=== PATIENT | male | born 1980 | race African-American/Black ===

== ENCOUNTER 2016-08-05 08:55 | Inpatient (IN) | payer MEDICAID, OTHER ==
[~2016-08-05] VITALS: Ht 177.8 cm; Wt 64.9 kg
[~2016-08-05 08:55] MED LIST: OLAN10TA3 PO; OLAN10TA6 PO; VITAD1000 PO
[2016-08-05 10:18] LABS: BASOPHILS # (AUTO) 0.06 K/uL (0.00-0.20); EOSINOPHILS # (AUTO) 0.16 K/uL (0.00-0.70); EOSINOPHILS % (AUTO) 2.79 % (1.0-6.0); HEMATOCRIT 51.1 % (41-53); HEMOGLOBIN 16.6 g/dL (13.5-17.5); LYMPHOCYTES # (AUTO) 2.2 K/uL (1.0-4.8); LYMPHOCYTES % (AUTO) 37.3 % (22.0-44.0); MEAN CORPUSCULAR HEMOGLOBIN 27.5 pg (26.0-34.0); MEAN CORPUSCULAR HGB CONC 32.5 G/dL (31.0-37.0); MEAN CORPUSCULAR VOLUME 85 fL (80-100); MONOCYTES # (AUTO) 0.6 K/uL (0.1-1.0); MONOCYTES % (AUTO) 9.9 % (2.0-9.0); NEUTROPHILS # (AUTO) 2.9 K/uL (1.8-7.7); PLATELET COUNT (AUTO) 291 K/uL (150-450); RED BLOOD CELL COUNT(AUTO) 6.03 MIL/uL (4.50-5.90); RED CELL DISTRIBUTION WIDTH 13.4 % (11.5-14.5); WHITE BLOOD COUNT (AUTO) 5.9 K/uL (4.5-11.0)
[2016-08-05 10:27] LABS: ANION GAP 5 mmol/L (8-16); CALCIUM, TOTAL 9.8 mg/dL (8.8-10.5); CARBON DIOXIDE 34 mmol/L (22-29); CHLORIDE 103 mmol/L (98-107); CREATININE 1.21 mg/dL (0.60-1.30); GLOMERULAR FILTR. RATE CALC > 60 mL/min (>60); POTASSIUM 4.5 mmol/L (3.5-5.1); SODIUM SERUM 142 mmol/L (136-145); UREA NITROGEN, BLOOD 6 mg/dL (7-18)
[2016-08-05] MEDS ORDERED: LORazepam 2 MG TABLET PO ONE (10:30)
[2016-08-05] MEDS ORDERED: HALOPERIDOL 5 MG TABLET PO ONE (10:30)
[2016-08-05 10:33] LABS: ALANINE AMINOTRANSFERASE 26 U/L (12-78); ALBUMIN 4.4 g/dL (3.4-5.0); ASPARTATE AMINOTRANSFERASE 20 U/L (15-37); BILIRUBIN,TOTAL 0.9 mg/dL (0.1-1.0); TOTAL PROTEIN, SERUM 8.2 g/dL (6.4-8.2)
[2016-08-05] MEDS ORDERED: ZOLPIDEM TARTRATE 10 MG TABLET PO PRN (10:45)
[2016-08-05 18:23] VITALS: BP 115/62
[2016-08-05] MEDS ORDERED: INFLUENZA VIRUS VACCINE QVS 2016-17 (3YR+)/PF 60 MCG/0.5 ML SYRINGE IM ONE (19:45)
[2016-08-06 07:11] VITALS: BP 122/78
[2016-08-06 08:21] VITALS: BP 126/62
[2016-08-06] MEDS: CHOLECALCIFEROL (VIT D3) 1,000 UNITS TABLET PO SCH (10:23)
[2016-08-06] MEDS ORDERED: IBUPROFEN 400 MG TABLET PO PRN (10:30)
[2016-08-06] MEDS ORDERED: ACETAMINOPHEN 325 MG TABLET PO PRN (10:30)
[2016-08-06 16:00] VITALS: BP 118/72
[2016-08-06] MEDS: HALOPERIDOL 5 MG TABLET PO PRN (16:18)
[2016-08-06] MEDS: LORazepam 2 MG TABLET PO PRN (16:18)
[2016-08-06] MEDS: OLANZapine 10 MG TABLET PO SCH (20:41)
[2016-08-07 08:17] VITALS: BP 108/66
[2016-08-07 08:52] LABS: HEMOGLOBIN A1C 5.8 % (4.5-6.2)
[2016-08-07] MEDS: CHOLECALCIFEROL (VIT D3) 1,000 UNITS TABLET PO SCH (09:18)
[2016-08-07 09:25] LABS: CHOL/HDL RATIO 2.2 (4.2-7.3); THYROID STIMULATING HORMONE 0.6 uIU/mL (0.36-3.74)
[2016-08-07 16:28] VITALS: BP 107/61
[2016-08-07] MEDS: OLANZapine 10 MG TABLET PO SCH (20:56)
[2016-08-08 06:49] VITALS: BP 115/75
[2016-08-08 08:19] VITALS: BP 113/60
[2016-08-08] MEDS: CHOLECALCIFEROL (VIT D3) 1,000 UNITS TABLET PO SCH (09:08)
[2016-08-08 16:06] VITALS: BP 121/68
[2016-08-08] MEDS: OLANZapine 10 MG TABLET PO SCH (20:32)
[2016-08-09 06:33] VITALS: BP 108/60
[2016-08-09] MEDS: CHOLECALCIFEROL (VIT D3) 1,000 UNITS TABLET PO SCH (08:41)
[2016-08-09 08:46] VITALS: BP 110/56
[2016-08-09 16:17] VITALS: BP 113/71
[2016-08-09] MEDS: OLANZapine 10 MG TABLET PO SCH (20:40)
[2016-08-10 06:57] VITALS: BP 110/65
[2016-08-10 08:36] VITALS: BP 111/65
[2016-08-10] MEDS: CHOLECALCIFEROL (VIT D3) 1,000 UNITS TABLET PO SCH (11:16)
[2016-08-10] MEDS: LORazepam 2 MG TABLET PO PRN (16:02)
[2016-08-10 16:05] VITALS: BP 116/68
[2016-08-10] MEDS: OLANZapine 10 MG TABLET PO SCH (20:24)
[2016-08-11 07:02] VITALS: BP 110/70
[2016-08-11] MEDS: CHOLECALCIFEROL (VIT D3) 1,000 UNITS TABLET PO SCH (08:27)
[2016-08-11 08:48] VITALS: BP 106/62
[2016-08-11 16:10] VITALS: BP 119/66
[2016-08-11] MEDS: LORazepam 2 MG TABLET PO PRN (17:05)
[2016-08-11] MEDS: HALOPERIDOL 5 MG TABLET PO PRN (17:05)
[2016-08-11] MEDS: OLANZapine 10 MG TABLET PO SCH (21:05)
[2016-08-12 07:02] VITALS: BP 112/64
[2016-08-12 08:21] VITALS: BP 108/69
[2016-08-12] MEDS: LORazepam 2 MG TABLET PO PRN ×2 (09:25→17:00)
[2016-08-12] MEDS: CHOLECALCIFEROL (VIT D3) 1,000 UNITS TABLET PO SCH (09:25)
[2016-08-12 16:00] VITALS: BP 111/73
[2016-08-12] MEDS: OLANZapine 10 MG TABLET PO SCH (20:33)
[2016-08-13 06:46] VITALS: BP 116/83
[2016-08-13 08:17] VITALS: BP 108/70
[2016-08-13] MEDS: CHOLECALCIFEROL (VIT D3) 1,000 UNITS TABLET PO SCH (09:06)
[2016-08-13] MEDS: LORazepam 2 MG TABLET PO PRN ×2 (09:06→16:16)
[2016-08-13 16:00] VITALS: BP 115/71
[2016-08-13] MEDS: OLANZapine 10 MG TABLET PO SCH (20:34)
[2016-08-14 06:42] VITALS: BP 113/73
[2016-08-14 08:01] VITALS: BP 112/60
[2016-08-14] MEDS: LORazepam 2 MG TABLET PO PRN (08:17)
[2016-08-14] MEDS: CHOLECALCIFEROL (VIT D3) 1,000 UNITS TABLET PO SCH (08:17)
[2016-08-14] MEDS ORDERED: VITAD1000 PO (10:17)
[2016-08-14] MEDS ORDERED: OLAN10TA3 PO (10:17)
== END 2016-08-14 13:20 | disposition home or self-care (01) | DRG 750 ==
LOC: EMS 08:56 → B2S 17:15 → UNDOADMIN 17:19 → B3A 18:35 → B2S 18:35
PROVIDERS: ADMIT Psychiatry & Neurology Psychiatry; ATTEND Psychiatry & Neurology Psychiatry
DX: F20.0 Paranoid schizophrenia (principal); R45.851 Suicidal ideations; E55.9 Vitamin D deficiency, unspecified; R45.850 Homicidal ideations; F15.10 Other stimulant abuse, uncomplicated; F17.210 Nicotine dependence, cigarettes, uncomplicated; F19.10 Other psychoactive substance abuse, uncomplicated; F32.9 Major depressive disorder, single episode, unspecified; Z79.899 Other long term (current) drug therapy; Z28.21 Immunization not carried out because of patient refusal
CPT/HCPCS: 83036; 84443; 99285; G0480

== ENCOUNTER 2016-08-31 16:37 | Inpatient (IN) | payer MEDICAID, OTHER ==
[~2016-08-31] VITALS: Ht 177.8 cm; Wt 65.3 kg
[~2016-08-31 16:37] MED LIST changes: -OLAN10TA6 PO
[2016-08-31] MEDS ORDERED: HALOPERIDOL LACTATE 5 MG/ML VIAL IM ONE (16:45)
[2016-08-31] MEDS ORDERED: LORazepam 2 MG/ML VIAL IM ONE (16:45)
[2016-08-31] MEDS ORDERED: DiphenhydrAMINE HCL 50 MG/ML VIAL IM ONE (16:45)
[2016-08-31 17:13] LABS: BASOPHILS % (AUTO) 0.8 % (0.0-2.0); EOSINOPHILS % (AUTO) 5.9 % (1.0-6.0); HEMATOCRIT 50.2 % (41-53); LYMPHOCYTES # (AUTO) 2.7 K/uL (1.0-4.8); LYMPHOCYTES % (AUTO) 37.5 % (22.0-44.0); MEAN CORPUSCULAR HEMOGLOBIN 27.5 pg (26.0-34.0); MEAN CORPUSCULAR HGB CONC 31.9 G/dL (31.0-37.0); MEAN CORPUSCULAR VOLUME 86 fL (80-100); MONOCYTES # (AUTO) 0.4 K/uL (0.1-1.0); NEUTROPHILS # (AUTO) 3.6 K/uL (1.8-7.7); NEUTROPHILS % (AUTO) 49.8 % (40.0-70.0); PLATELET COUNT (AUTO) 293 K/uL (150-450); RED BLOOD CELL COUNT(AUTO) 5.81 MIL/uL (4.50-5.90); RED CELL DISTRIBUTION WIDTH 13.6 % (11.5-14.5); WHITE BLOOD COUNT (AUTO) 7.2 K/uL (4.5-11.0)
[2016-08-31] MEDS ORDERED: HydrOXYzine PAMOATE 50 MG CAPSULE PO PRN (17:15)
[2016-08-31] MEDS ORDERED: ACETAMINOPHEN 325 MG TABLET PO PRN (17:15)
[2016-08-31] MEDS ORDERED: LOPERAMIDE HCL 2 MG CAPSULE PO PRN (17:15)
[2016-08-31] MEDS ORDERED: LORazepam 2 MG TABLET PO PRN (17:15)
[2016-08-31] MEDS ORDERED: ZOLPIDEM TARTRATE 10 MG TABLET PO PRN (17:15)
[2016-08-31] MEDS ORDERED: MAGNESIUM HYDROXIDE SUSPENSION 30 ML UDCUP PO PRN (17:15)
[2016-08-31] MEDS ORDERED: MAG HYDROX/AL HYDROX/SIMETH ES 30 ML SUSPENSION UDCUP PO PRN (17:15)
[2016-08-31] MEDS ORDERED: PROMETHAZINE HCL 25 MG TABLET PO PRN (17:15)
[2016-08-31] MEDS ORDERED: OLANZapine 5 MG RAPDIS TABLET PO PRN (17:15)
[2016-08-31] MEDS ORDERED: TUBERCULIN, PURIFIED PROTEIN DERIVATIVE 5 TU/0.1 ML SYG ID ONE (17:15)
[2016-08-31] MEDS ORDERED: GuaiFENesin/D-METHORPHAN [SUGAR-FREE] 200-20MG/10 ML SYRUP UDCUP PO PRN (17:15)
[2016-08-31 17:20] LABS: ANION GAP 7 mmol/L (8-16); CALCIUM, TOTAL 9.2 mg/dL (8.8-10.5); CARBON DIOXIDE 33 mmol/L (22-29); CHLORIDE 106 mmol/L (98-107); CREATININE 1.26 mg/dL (0.60-1.30); GLOMERULAR FILTR. RATE CALC > 60 mL/min (>60); SODIUM SERUM 146 mmol/L (136-145); UREA NITROGEN, BLOOD 17 mg/dL (7-18)
[2016-08-31 17:27] LABS: ALANINE AMINOTRANSFERASE 26 U/L (12-78); ALBUMIN 4.2 g/dL (3.4-5.0); ASPARTATE AMINOTRANSFERASE 17 U/L (15-37); BILIRUBIN,TOTAL 0.4 mg/dL (0.1-1.0); TOTAL PROTEIN, SERUM 7.4 g/dL (6.4-8.2)
[2016-08-31] MEDS: THIAMINE HCL 100 MG TABLET PO SCH (18:05)
[2016-08-31] MEDS: OLANZapine 5 MG RAPDIS TABLET PO SCH (21:00)
[2016-08-31 21:21] VITALS: BP 107/66
[2016-09-01 06:18] VITALS: BP 104/62
[2016-09-01 08:24] VITALS: BP 107/71
[2016-09-01] MEDS: THIAMINE HCL 100 MG TABLET PO SCH ×2 (09:04→16:44)
[2016-09-01] MEDS: MULTIVITAMINS WITH MINERALS, THERAPEUTIC TABLET PO SCH (09:04)
[2016-09-01] MEDS: FOLIC ACID 1 MG TABLET PO SCH (09:04)
[2016-09-01] MEDS ORDERED: ACETAMINOPHEN 325 MG TABLET PO PRN (16:00)
[2016-09-01] MEDS ORDERED: IBUPROFEN 400 MG TABLET PO PRN (16:00)
[2016-09-01 16:56] VITALS: BP 136/88
[2016-09-01] MEDS: OLANZapine 5 MG RAPDIS TABLET PO SCH (20:52)
[2016-09-02 01:02] VITALS: BP 100/56
[2016-09-02 08:52] VITALS: BP 110/63
[2016-09-02] MEDS: FOLIC ACID 1 MG TABLET PO SCH (09:55)
[2016-09-02] MEDS: CHOLECALCIFEROL (VIT D3) 1,000 UNITS TABLET PO SCH (09:55)
[2016-09-02] MEDS: MULTIVITAMINS WITH MINERALS, THERAPEUTIC TABLET PO SCH (09:55)
[2016-09-02] MEDS: THIAMINE HCL 100 MG TABLET PO SCH ×2 (09:55→16:25)
[2016-09-02 16:33] VITALS: BP 114/64
[2016-09-02] MEDS: OLANZapine 5 MG RAPDIS TABLET PO SCH (20:44)
[2016-09-03 00:37] VITALS: BP 105/71
[2016-09-03 08:12] VITALS: BP 113/52
[2016-09-03 08:44] LABS: BASOPHILS % (AUTO) 1.1 % (0.0-2.0); EOSINOPHILS % (AUTO) 9.1 % (1.0-6.0); HEMATOCRIT 51.4 % (41-53); HEMOGLOBIN 16.4 g/dL (13.5-17.5); LYMPHOCYTES % (AUTO) 47.3 % (22.0-44.0); MEAN CORPUSCULAR HEMOGLOBIN 27.8 pg (26.0-34.0); MEAN CORPUSCULAR VOLUME 87 fL (80-100); MONOCYTES # (AUTO) 0.4 K/uL (0.1-1.0); MONOCYTES % (AUTO) 5.7 % (2.0-9.0); NEUTROPHILS # (AUTO) 2.3 K/uL (1.8-7.7); NEUTROPHILS % (AUTO) 36.8 % (40.0-70.0); PLATELET COUNT (AUTO) 256 K/uL (150-450); RED BLOOD CELL COUNT(AUTO) 5.91 MIL/uL (4.50-5.90); RED CELL DISTRIBUTION WIDTH 13.6 % (11.5-14.5); WHITE BLOOD COUNT (AUTO) 6.3 K/uL (4.5-11.0)
[2016-09-03] MEDS: CHOLECALCIFEROL (VIT D3) 1,000 UNITS TABLET PO SCH (09:11)
[2016-09-03] MEDS: THIAMINE HCL 100 MG TABLET PO SCH ×2 (09:11→16:07)
[2016-09-03] MEDS: FOLIC ACID 1 MG TABLET PO SCH (09:11)
[2016-09-03] MEDS: MULTIVITAMINS WITH MINERALS, THERAPEUTIC TABLET PO SCH (09:11)
[2016-09-03 09:44] LABS: HEMOGLOBIN A1C 5.6 % (4.5-6.2)
[2016-09-03 10:47] LABS: ALANINE AMINOTRANSFERASE 24 U/L (12-78); ALBUMIN 3.7 g/dL (3.4-5.0); ANION GAP 8 mmol/L (8-16); ASPARTATE AMINOTRANSFERASE 27 U/L (15-37); BILIRUBIN,TOTAL 0.5 mg/dL (0.1-1.0); CALCIUM, TOTAL 8.9 mg/dL (8.8-10.5); CARBON DIOXIDE 28 mmol/L (22-29); CHLORIDE 105 mmol/L (98-107); CHOL/HDL RATIO 2.8 (4.2-7.3); GLOMERULAR FILTR. RATE CALC > 60 mL/min (>60); POTASSIUM 4.5 mmol/L (3.5-5.1); SODIUM SERUM 141 mmol/L (136-145); THYROID STIMULATING HORMONE 1.85 uIU/mL (0.36-3.74); TOTAL PROTEIN, SERUM 6.9 g/dL (6.4-8.2); UREA NITROGEN, BLOOD 18 mg/dL (7-18)
[2016-09-03] MEDS ORDERED: OLANZAPINE PAMOATE 405 MG/2.7 ML VIAL IM ONE (16:00)
[2016-09-03 16:12] VITALS: BP 128/70
[2016-09-03] MEDS: OLANZapine 5 MG RAPDIS TABLET PO SCH (20:20)
[2016-09-04 03:15] VITALS: BP 107/65
[2016-09-04 08:13] VITALS: BP 99/54
[2016-09-04] MEDS: FOLIC ACID 1 MG TABLET PO SCH (08:57)
[2016-09-04] MEDS: THIAMINE HCL 100 MG TABLET PO SCH ×2 (08:57→16:42)
[2016-09-04] MEDS: MULTIVITAMINS WITH MINERALS, THERAPEUTIC TABLET PO SCH (08:57)
[2016-09-04] MEDS: CHOLECALCIFEROL (VIT D3) 1,000 UNITS TABLET PO SCH (08:57)
[2016-09-04] MEDS ORDERED: OLAN405V IM (09:16)
[2016-09-04] MEDS ORDERED: OLAN10TA6 PO (09:16)
[2016-09-04] MEDS ORDERED: VITAD1000 PO (11:08)
[2016-09-04 16:33] VITALS: BP 111/80
[2016-09-05 00:09] VITALS: BP 105/62
[2016-09-05] MEDS: FOLIC ACID 1 MG TABLET PO SCH (08:48)
[2016-09-05] MEDS: THIAMINE HCL 100 MG TABLET PO SCH ×2 (08:48→17:00)
[2016-09-05] MEDS: MULTIVITAMINS WITH MINERALS, THERAPEUTIC TABLET PO SCH (08:48)
[2016-09-05] MEDS: CHOLECALCIFEROL (VIT D3) 1,000 UNITS TABLET PO SCH (08:48)
[2016-09-05 09:15] VITALS: BP 109/67
[2016-09-05 16:00] VITALS: BP 115/65
[2016-09-06 00:12] VITALS: BP 108/69
[2016-09-06 08:41] VITALS: BP 103/63
[2016-09-06] MEDS: MULTIVITAMINS WITH MINERALS, THERAPEUTIC TABLET PO SCH (09:34)
[2016-09-06] MEDS: FOLIC ACID 1 MG TABLET PO SCH (09:34)
[2016-09-06] MEDS: CHOLECALCIFEROL (VIT D3) 1,000 UNITS TABLET PO SCH (09:34)
[2016-09-06] MEDS: THIAMINE HCL 100 MG TABLET PO SCH ×2 (09:34→16:18)
[2016-09-06 16:13] VITALS: BP 109/64
[2016-09-07 06:37] VITALS: BP 100/60
[2016-09-07 09:02] VITALS: BP 120/62
[2016-09-07] MEDS: CHOLECALCIFEROL (VIT D3) 1,000 UNITS TABLET PO SCH (09:33)
[2016-09-07] MEDS: FOLIC ACID 1 MG TABLET PO SCH (09:33)
[2016-09-07] MEDS: MULTIVITAMINS WITH MINERALS, THERAPEUTIC TABLET PO SCH (09:34)
[2016-09-07] MEDS: THIAMINE HCL 100 MG TABLET PO SCH ×2 (09:34→16:16)
[2016-09-07] MEDS ORDERED: NALT50 PO (13:44)
[2016-09-07 16:00] VITALS: BP 138/66
[2016-09-08 05:10] VITALS: BP 105/61
[2016-09-08] MEDS ORDERED: NALTREXONE HCL 50 MG TABLET PO SCH (09:00)
[2016-10-01] MEDS ORDERED: OLANZAPINE PAMOATE 405 MG/2.7 ML VIAL IM SCH (09:00)
== END 2016-09-08 07:25 | disposition home or self-care (01) | DRG 750 ==
LOC: EMS 16:38 → B2S 17:55
PROVIDERS: ADMIT Psychiatry & Neurology Psychiatry; ATTEND Psychiatry & Neurology Psychiatry
DX: F25.0 Schizoaffective disorder, bipolar type (principal); G93.41 Metabolic encephalopathy; E87.0 Hyperosmolality and hypernatremia; R45.851 Suicidal ideations; E55.9 Vitamin D deficiency, unspecified; Z91.19 Patient's noncompliance with other medical treatment and regimen; F10.10 Alcohol abuse, uncomplicated; F15.90 Other stimulant use, unspecified, uncomplicated; F20.0 Paranoid schizophrenia; F15.10 Other stimulant abuse, uncomplicated; F41.9 Anxiety disorder, unspecified; Z81.8 Family history of other mental and behavioral disorders; Z59.0 Homelessness; Z68.1 Body mass index [BMI] 19.9 or less, adult; Z71.6 Tobacco abuse counseling; Z71.41 Alcohol abuse counseling and surveillance of alcoholic; Z71.51 Drug abuse counseling and surveillance of drug abuser; Z79.899 Other long term (current) drug therapy; F19.20 Other psychoactive substance dependence, uncomplicated
CPT/HCPCS: 83036; 84439; 84443; 86592; 87081; 96372; 99285; G0480; J1200; J1630; J2060; J2358

== ENCOUNTER 2016-12-14 18:30 | Inpatient (IN) | payer MEDICAID, OTHER ==
[~2016-12-14] VITALS: Ht 167.6 cm; Wt 72.8 kg
[~2016-12-14 18:30] MED LIST changes: +NALT50 PO; -OLAN10TA3 PO; +OLAN405V IM
[2016-12-14 20:24] LABS: BASOPHILS % (AUTO) 1.8 % (0.0-2.0); EOSINOPHILS % (AUTO) 2.4 % (1.0-6.0); HEMATOCRIT 50.1 % (41-53); LYMPHOCYTES % (AUTO) 38.6 % (22.0-44.0); MEAN CORPUSCULAR HEMOGLOBIN 28.9 pg (26.0-34.0); MEAN CORPUSCULAR VOLUME 85 fL (80-100); MONOCYTES # (AUTO) 0.6 K/uL (0.1-1.0); MONOCYTES % (AUTO) 7.2 % (2.0-9.0); NEUTROPHILS # (AUTO) 3.9 K/uL (1.8-7.7); PLATELET COUNT (AUTO) 243 K/uL (150-450); RED BLOOD CELL COUNT(AUTO) 5.89 MIL/uL (4.50-5.90); RED CELL DISTRIBUTION WIDTH 12.9 % (11.5-14.5); WHITE BLOOD COUNT (AUTO) 7.8 K/uL (4.5-11.0)
[2016-12-14 20:36] LABS: ANION GAP 9 mmol/L (8-16); CALCIUM, TOTAL 10.1 mg/dL (8.8-10.5); CARBON DIOXIDE 29 mmol/L (22-29); CHLORIDE 101 mmol/L (98-107); CREATININE 1.36 mg/dL (0.60-1.30); GLOMERULAR FILTR. RATE CALC > 60 mL/min (>60); POTASSIUM 3.9 mmol/L (3.5-5.1); SODIUM SERUM 139 mmol/L (136-145); UREA NITROGEN, BLOOD 10 mg/dL (7-18)
[2016-12-14] MEDS ORDERED: LORazepam 2 MG/ML VIAL IM ONE (20:45)
[2016-12-14] MEDS ORDERED: DiphenhydrAMINE HCL 50 MG/ML VIAL IM ONE (20:45)
[2016-12-14] MEDS ORDERED: HALOPERIDOL LACTATE 5 MG/ML VIAL IM ONE (20:45)
[2016-12-14 20:47] LABS: ALANINE AMINOTRANSFERASE 26 U/L (12-78); ALBUMIN 4.6 g/dL (3.4-5.0); ASPARTATE AMINOTRANSFERASE 32 U/L (15-37); TOTAL PROTEIN, SERUM 8.2 g/dL (6.4-8.2)
[2016-12-15] MEDS ORDERED: ZOLPIDEM TARTRATE 10 MG TABLET PO PRN
[2016-12-15] MEDS ORDERED: OLANZapine 5 MG RAPDIS TABLET PO PRN
[2016-12-15 00:45] VITALS: BP 138/78
[2016-12-15 00:58] VITALS: BP 103/75
[2016-12-15] MEDS ORDERED: ONDANSETRON HCL 4 MG TABLET PO PRN (08:15)
[2016-12-15] MEDS ORDERED: MAGNESIUM HYDROXIDE SUSPENSION 30 ML UDCUP PO PRN (08:15)
[2016-12-15] MEDS ORDERED: MAG HYDROX/AL HYDROX/SIMETH ES 30 ML SUSPENSION UDCUP PO PRN (08:15)
[2016-12-15] MEDS ORDERED: PETROLATUM,WHITE 71 GM JELLY TP PRN (08:15)
[2016-12-15] MEDS ORDERED: IBUPROFEN 600 MG TABLET PO PRN (08:15)
[2016-12-15] MEDS ORDERED: LOPERAMIDE HCL 2 MG CAPSULE PO PRN (08:15)
[2016-12-15] MEDS ORDERED: BENZOCAINE/MENTHOL LOZENGE MM PRN (08:15)
[2016-12-15] MEDS ORDERED: CloNIDine HCL 0.1 MG TABLET PO PRN (08:15)
[2016-12-15] MEDS ORDERED: BACITRACIN 28.4 GM OINTMENT TP PRN (08:15)
[2016-12-15] MEDS ORDERED: ACETAMINOPHEN 325 MG TABLET PO PRN (08:15)
[2016-12-15] MEDS ORDERED: ALBUTEROL SULFATE HFA 90 MCG/PUFF 8 GM INHALER IH PRN (08:15)
[2016-12-15 08:38] LABS: CHOL/HDL RATIO 2.7 (4.2-7.3)
[2016-12-15 08:49] VITALS: BP 90/58
[2016-12-15] MEDS: LORazepam 2 MG TABLET PO PRN ×2 (09:35→20:41)
[2016-12-15 16:00] VITALS: BP 103/60
[2016-12-15] MEDS ORDERED: OLANZapine 5 MG RAPDIS TABLET PO SCH (21:00)
[2016-12-16 06:46] VITALS: BP 108/71
[2016-12-16 08:14] VITALS: BP 92/58
[2016-12-16] MEDS: NALTREXONE HCL 50 MG TABLET PO SCH (09:19)
[2016-12-16] MEDS: FLUoxetine HCL 20 MG CAPSULE PO SCH (09:19)
[2016-12-16] MEDS ORDERED: PALIPERIDONE 3 MG ER TABLET PO PRN (15:15)
[2016-12-16 16:00] VITALS: BP 114/67
[2016-12-16] MEDS ORDERED: PALIPERIDONE PALMITATE 234 MG/1.5 ML SYRINGE IM ONE (21:00)
[2016-12-17] MEDS ORDERED: LEVOTHYROXINE SODIUM 200 MCG TABLET PO SCH (06:30)
[2016-12-17 07:01] VITALS: BP 122/75
[2016-12-17] MEDS: NALTREXONE HCL 50 MG TABLET PO SCH (08:41)
[2016-12-17] MEDS: FLUoxetine HCL 20 MG CAPSULE PO SCH (08:41)
[2016-12-17] MEDS ORDERED: DOCUSATE SODIUM 250 MG CAPSULE PO SCH (09:00)
[2016-12-17] MEDS ORDERED: NICOTINE 14 MG/24 HOUR PATCH TD SCH (09:00)
[2016-12-17] MEDS ORDERED: CHOLECALCIFEROL (VIT D3) 1,000 UNITS TABLET PO SCH (09:00)
[2016-12-17] MEDS ORDERED: ASCORBIC ACID 500 MG TABLET PO SCH (09:00)
[2016-12-17] MEDS ORDERED: LORATADINE 10 MG TABLET PO SCH (09:00)
[2016-12-17] MEDS ORDERED: OMEPRAZOLE 20 MG CAPSULE PO SCH (09:00)
[2016-12-17 09:09] VITALS: BP 121/74
[2016-12-17 12:50] VITALS: BP 125/76
[2016-12-17] MEDS ORDERED: PALI156D IM (13:54)
[2016-12-17] MEDS ORDERED: NALT50 PO (13:54)
[2016-12-17] MEDS ORDERED: FLUO-191 PO ×2 (13:54→14:51)
[2016-12-18] MEDS ORDERED: FLUoxetine HCL 20 MG CAPSULE PO SCH (09:00)
[2016-12-20] MEDS ORDERED: PALIPERIDONE PALMITATE 156 MG/ML SYRINGE IM ONE (09:00)
== END 2016-12-17 16:50 | disposition home or self-care (01) | DRG 750 ==
LOC: EMS 18:31 → B3A 23:55
PROVIDERS: ADMIT Psychiatry & Neurology Psychiatry; ATTEND Psychiatry & Neurology Psychiatry
DX: F20.0 Paranoid schizophrenia (principal); E55.9 Vitamin D deficiency, unspecified; R45.851 Suicidal ideations; I10 Essential (primary) hypertension; F15.10 Other stimulant abuse, uncomplicated; F17.200 Nicotine dependence, unspecified, uncomplicated; F32.9 Major depressive disorder, single episode, unspecified; Z71.51 Drug abuse counseling and surveillance of drug abuser; Z71.6 Tobacco abuse counseling
CPT/HCPCS: 86592; 96372; 99285; G0480; J1200; J1630; J2060

== ENCOUNTER 2018-03-31 18:26 | Inpatient (IN) | payer MEDICAID, OTHER ==
[~2018-03-31] VITALS: Ht 177.8 cm; Wt 74.8 kg
[~2018-03-31 18:26] MED LIST changes: +FLUO-191 PO; -NALT50 PO; +NALT50TA6 PO; -OLAN405V IM; +PALI156D IM; -VITAD1000 PO
[2018-03-31 19:15] LABS: BASOPHILS % (AUTO) 0.7 % (0.0-2.0); EOSINOPHILS % (AUTO) 1.6 % (1.0-6.0); HEMOGLOBIN 15.3 g/dL (13.5-17.5); LYMPHOCYTES # (AUTO) 1.5 K/uL (1.0-4.8); LYMPHOCYTES % (AUTO) 17.1 % (22.0-44.0); MEAN CORPUSCULAR HGB CONC 34.1 G/dL (31.0-37.0); MEAN CORPUSCULAR VOLUME 85 fL (80-100); MONOCYTES # (AUTO) 0.4 K/uL (0.1-1.0); MONOCYTES % (AUTO) 4.2 % (2.0-9.0); NEUTROPHILS # (AUTO) 6.5 K/uL (1.8-7.7); NEUTROPHILS % (AUTO) 76.4 % (40.0-70.0); PLATELET COUNT (AUTO) 244 K/uL (150-450); RED BLOOD CELL COUNT(AUTO) 5.28 MIL/uL (4.50-5.90); RED CELL DISTRIBUTION WIDTH 12.7 % (11.5-14.5)
[2018-03-31 19:24] LABS: ANION GAP 6 mmol/L (8-16); CALCIUM, TOTAL 9.1 mg/dL (8.8-10.5); CARBON DIOXIDE 30 mmol/L (22-29); CHLORIDE 100 mmol/L (98-107); CREATININE 1.23 mg/dL (0.60-1.30); GLOMERULAR FILTR. RATE CALC > 60 mL/min (>60); GLUCOSE,RANDOM 90 mg/dL (70-110); POTASSIUM 3.7 mmol/L (3.5-5.1); SODIUM SERUM 136 mmol/L (136-145); UREA NITROGEN, BLOOD 8 mg/dL (7-18)
[2018-03-31 19:31] LABS: ALANINE AMINOTRANSFERASE 33 U/L (12-78); ALBUMIN 3.9 g/dL (3.4-5.0); ALKALINE PHOSPHATASE 54 U/L (46-116); ASPARTATE AMINOTRANSFERASE 19 U/L (15-37); BILIRUBIN,TOTAL 0.3 mg/dL (0.1-1.0); TOTAL PROTEIN, SERUM 7.2 g/dL (6.4-8.2)
[2018-03-31 19:59] LABS: AMPHET/METH SCREEN,URINE POSITIVE (NEGATIVE); BARBITURATE SCREEN, URINE NEGATIVE (NEGATIVE); BENZODIAZEPINES SCREEN,URINE NEGATIVE (NEGATIVE); CANNABINOID SCREEN,URINE NEGATIVE (NEGATIVE); COCAINE SCREEN,URINE NEGATIVE (NEGATIVE); METHADONE SCREEN, URINE NEGATIVE (NEGATIVE); OPIATE SCREEN,URINE NEGATIVE (NEGATIVE)
[2018-03-31 20:04] LABS: PHENCYCLIDINE SCREEN,URINE NEGATIVE (NEGATIVE)
[2018-03-31] MEDS ORDERED: ZOLPIDEM TARTRATE 10 MG TABLET PO PRN (21:15)
[2018-04-01 00:35] VITALS: BP 133/78
[2018-04-01] MEDS ORDERED: ACETAMINOPHEN 325 MG TABLET PO PRN (07:15)
[2018-04-01] MEDS ORDERED: DOCUSATE SODIUM 100 MG CAPSULE PO PRN (07:15)
[2018-04-01] MEDS ORDERED: ALBUTEROL SULFATE HFA 90 MCG/PUFF 8 GM INHALER IH PRN (07:15)
[2018-04-01] MEDS ORDERED: CloNIDine HCL 0.1 MG TABLET PO PRN (07:15)
[2018-04-01] MEDS ORDERED: LOPERAMIDE HCL 2 MG CAPSULE PO PRN (07:15)
[2018-04-01] MEDS ORDERED: PETROLATUM,WHITE 71 GM JELLY TP PRN (07:15)
[2018-04-01] MEDS ORDERED: MAGNESIUM HYDROXIDE SUSPENSION 30 ML UDCUP PO PRN (07:15)
[2018-04-01] MEDS ORDERED: IBUPROFEN 400 MG TABLET PO PRN (07:15)
[2018-04-01] MEDS ORDERED: ONDANSETRON HCL 4 MG TABLET PO PRN (07:15)
[2018-04-01] MEDS ORDERED: GuaiFENesin/D-METHORPHAN [SUGAR-FREE] 200-20MG/10 ML SYRUP UDCUP PO PRN (07:15)
[2018-04-01] MEDS ORDERED: NICOTINE 14 MG/24 HOUR PATCH TD PRN (07:15)
[2018-04-01 08:03] VITALS: BP 105/60
[2018-04-01] MEDS: RisperiDONE 2 MG TABLET PO SCH ×2 (10:45→16:37)
[2018-04-01 16:00] VITALS: BP 112/64
[2018-04-01] MEDS: HALOPERIDOL 5 MG TABLET PO PRN (16:37)
[2018-04-01] MEDS: LORazepam 2 MG TABLET PO PRN (16:37)
[2018-04-02 07:28] VITALS: BP 114/69
[2018-04-02 07:59] LABS: BASOPHILS % (AUTO) 0.9 % (0.0-2.0); EOSINOPHILS % (AUTO) 6.3 % (1.0-6.0); HEMOGLOBIN 16.7 g/dL (13.5-17.5); LYMPHOCYTES # (AUTO) 2.3 K/uL (1.0-4.8); MEAN CORPUSCULAR HEMOGLOBIN 29.3 pg (26.0-34.0); MEAN CORPUSCULAR HGB CONC 34.2 G/dL (31.0-37.0); MEAN CORPUSCULAR VOLUME 86 fL (80-100); MONOCYTES # (AUTO) 0.3 K/uL (0.1-1.0); MONOCYTES % (AUTO) 6.3 % (2.0-9.0); NEUTROPHILS # (AUTO) 2.4 K/uL (1.8-7.7); NEUTROPHILS % (AUTO) 43.5 % (40.0-70.0); PLATELET COUNT (AUTO) 228 K/uL (150-450); RED BLOOD CELL COUNT(AUTO) 5.72 MIL/uL (4.50-5.90); RED CELL DISTRIBUTION WIDTH 12.7 % (11.5-14.5)
[2018-04-02 08:03] VITALS: BP 111/75
[2018-04-02 08:28] LABS: ALANINE AMINOTRANSFERASE 25 U/L (12-78); ALBUMIN 3.7 g/dL (3.4-5.0); ALKALINE PHOSPHATASE 53 U/L (46-116); ANION GAP 7 mmol/L (8-16); ASPARTATE AMINOTRANSFERASE 19 U/L (15-37); BILIRUBIN,TOTAL 0.6 mg/dL (0.1-1.0); CALCIUM, TOTAL 9.1 mg/dL (8.8-10.5); CARBON DIOXIDE 30 mmol/L (22-29); CHLORIDE 100 mmol/L (98-107); CHOL/HDL RATIO 2.8 (4.2-7.3); CHOLESTEROL 126 mg/dL (131-200); CREATININE 1.15 mg/dL (0.60-1.30); GLOMERULAR FILTR. RATE CALC > 60 mL/min (>60); GLUCOSE,RANDOM 88 mg/dL (70-110); HDL CHOLESTEROL 45 mg/dL (40-60); LDL CHOL (CALC.) 67 mg/dL (0-130); POTASSIUM 4.3 mmol/L (3.5-5.1); SODIUM SERUM 137 mmol/L (136-145); THYROID STIMULATING HORMONE 0.66 uIU/mL (0.36-3.74); TOTAL PROTEIN, SERUM 6.7 g/dL (6.4-8.2); TRIGLYCERIDES 69 mg/dL (15-150); UREA NITROGEN, BLOOD 15 mg/dL (7-18)
[2018-04-02] MEDS: RisperiDONE 2 MG TABLET PO SCH ×2 (08:28→17:11)
[2018-04-02 08:44] LABS: HEMOGLOBIN A1C 5.5 % (4.5-6.2)
[2018-04-02] MEDS: LORazepam 2 MG TABLET PO PRN ×2 (10:12→17:11)
[2018-04-02 16:00] VITALS: BP 106/71
[2018-04-02] MEDS: HALOPERIDOL 5 MG TABLET PO PRN (17:11)
[2018-04-03 05:15] VITALS: BP 108/68
[2018-04-03] MEDS: RisperiDONE 2 MG TABLET PO SCH ×2 (07:58→16:01)
[2018-04-03 08:03] VITALS: BP 109/67
[2018-04-03 16:05] VITALS: BP 128/82
[2018-04-04 05:54] VITALS: BP 110/78
[2018-04-04] MEDS: RisperiDONE 2 MG TABLET PO SCH ×2 (08:25→16:50)
[2018-04-04 08:54] VITALS: BP 112/68
[2018-04-04 16:00] VITALS: BP 106/68
[2018-04-05 08:02] VITALS: BP 102/61
[2018-04-05] MEDS: RisperiDONE 2 MG TABLET PO SCH (08:11)
[2018-04-05] MEDS ORDERED: RISP2TAB76 PO (10:04)
== END 2018-04-05 12:15 | disposition home or self-care (01) | DRG 750 ==
LOC: EMS 18:27 → UNDOADMIN 21:30 → B3A 21:30
PROVIDERS: ADMIT Psychiatry & Neurology Child & Adolescent Psychiatry; ATTEND Psychiatry & Neurology Child & Adolescent Psychiatry
DX: F20.9 Schizophrenia, unspecified (principal); R45.851 Suicidal ideations; Y90.0 Blood alcohol level of less than 20 mg/100 ml; F15.10 Other stimulant abuse, uncomplicated; F17.210 Nicotine dependence, cigarettes, uncomplicated; E55.9 Vitamin D deficiency, unspecified; F19.10 Other psychoactive substance abuse, uncomplicated; F32.9 Major depressive disorder, single episode, unspecified; F41.9 Anxiety disorder, unspecified; Z28.21 Immunization not carried out because of patient refusal; Z71.6 Tobacco abuse counseling; Z71.51 Drug abuse counseling and surveillance of drug abuser; Z79.899 Other long term (current) drug therapy
CPT/HCPCS: 83036; 84443; 90686; 99406; G0480

== ENCOUNTER 2019-02-05 22:53 | Inpatient (IN) | payer MEDICAID, OTHER ==
[~2019-02-05] VITALS: Ht 177.8 cm; Wt 70.8 kg
[~2019-02-05 22:53] MED LIST changes: -FLUO-191 PO; -NALT50TA6 PO; +RISP2TAB76 PO
[2019-02-05 23:25] LABS: EOSINOPHILS % (AUTO) 5.4 % (1.0-6.0); HEMATOCRIT 46.8 % (41-53); HEMOGLOBIN 15.6 g/dL (13.5-17.5); LYMPHOCYTES # (AUTO) 2.4 K/uL (1.0-4.8); MEAN CORPUSCULAR HEMOGLOBIN 29.7 pg (26.0-34.0); MEAN CORPUSCULAR HGB CONC 33.4 G/dL (31.0-37.0); MEAN CORPUSCULAR VOLUME 89 fL (80-100); MONOCYTES # (AUTO) 0.5 K/uL (0.1-1.0); MONOCYTES % (AUTO) 6.5 % (2.0-9.0); NEUTROPHILS # (AUTO) 3.8 K/uL (1.8-7.7); NEUTROPHILS % (AUTO) 53.1 % (40.0-70.0); PLATELET COUNT (AUTO) 246 K/uL (150-450); RED BLOOD CELL COUNT(AUTO) 5.26 MIL/uL (4.50-5.90); RED CELL DISTRIBUTION WIDTH 13.7 % (11.5-14.5)
[2019-02-05 23:43] LABS: ANION GAP 10 mmol/L (8-16); CALCIUM, TOTAL 9.2 mg/dL (8.8-10.5); CARBON DIOXIDE 29 mmol/L (22-29); CHLORIDE 101 mmol/L (98-107); CREATININE 1.27 mg/dL (0.60-1.30); GLOMERULAR FILTR. RATE CALC > 60 mL/min (>60); GLUCOSE,RANDOM 111 mg/dL (70-110); POTASSIUM 3.6 mmol/L (3.5-5.1); SODIUM SERUM 140 mmol/L (136-145); UREA NITROGEN, BLOOD 12 mg/dL (7-18)
[2019-02-05 23:49] LABS: ALANINE AMINOTRANSFERASE 10 U/L (12-78); ALBUMIN 4.2 g/dL (3.4-5.0); ALKALINE PHOSPHATASE 59 U/L (46-116); ASPARTATE AMINOTRANSFERASE 17 U/L (15-37); BILIRUBIN,TOTAL 0.6 mg/dL (0.1-1.0); TOTAL PROTEIN, SERUM 7.3 g/dL (6.4-8.2)
[2019-02-06] MEDS ORDERED: ZOLPIDEM TARTRATE 10 MG TABLET PO PRN (02:15)
[2019-02-06] MEDS ORDERED: HALOPERIDOL 5 MG TABLET PO PRN (02:15)
[2019-02-06] MEDS ORDERED: LORazepam 2 MG TABLET PO PRN (02:15)
[2019-02-06 05:25] VITALS: BP 130/71
[2019-02-06] MEDS ORDERED: ALBUTEROL SULFATE HFA 90 MCG/PUFF 8 GM INHALER IH PRN (07:15)
[2019-02-06] MEDS ORDERED: MAGNESIUM HYDROXIDE SUSPENSION 30 ML UDCUP PO PRN (07:15)
[2019-02-06] MEDS ORDERED: DOCUSATE SODIUM 100 MG CAPSULE PO PRN (07:15)
[2019-02-06] MEDS ORDERED: GuaiFENesin/D-METHORPHAN [SUGAR-FREE] 200-20MG/10 ML SYRUP UDCUP PO PRN (07:15)
[2019-02-06] MEDS ORDERED: IBUPROFEN 400 MG TABLET PO PRN (07:15)
[2019-02-06] MEDS ORDERED: PETROLATUM,WHITE 28 GM JELLY TP PRN (07:15)
[2019-02-06] MEDS ORDERED: ACETAMINOPHEN 325 MG TABLET PO PRN (07:15)
[2019-02-06] MEDS ORDERED: LOPERAMIDE HCL 2 MG CAPSULE PO PRN (07:15)
[2019-02-06] MEDS ORDERED: MAG HYDROX/AL HYDROX/SIMETH ES 30 ML SUSPENSION UDCUP PO PRN (07:15)
[2019-02-06] MEDS ORDERED: CloNIDine HCL 0.1 MG TABLET PO PRN (07:15)
[2019-02-06] MEDS ORDERED: NICOTINE 14 MG/24 HOUR PATCH TD PRN (07:15)
[2019-02-06] MEDS ORDERED: ONDANSETRON HCL 4 MG TABLET PO PRN (07:15)
[2019-02-06 16:00] VITALS: BP 108/65
[2019-02-06] MEDS ORDERED: PALIPERIDONE 6 MG ER TABLET PO SCH (21:00)
[2019-02-07 06:39] VITALS: BP 102/59
[2019-02-07 08:11] VITALS: BP 101/57
[2019-02-07 08:51] LABS: HEMOGLOBIN A1C 5.4 % (4.5-6.2)
[2019-02-07 08:58] LABS: FREE T4 (FREE THYROXINE) 0.9 ng/dL (0.76-1.46); THYROID STIMULATING HORMONE 0.61 uIU/mL (0.36-3.74)
[2019-02-07 16:12] VITALS: BP 107/62
[2019-02-07] MEDS ORDERED: PALIPERIDONE 3 MG ER TABLET PO SCH (21:00)
[2019-02-08 01:21] VITALS: BP 112/64
[2019-02-08 08:18] VITALS: BP 111/71
[2019-02-08 16:00] VITALS: BP 108/68
[2019-02-08] MEDS: PALIPERIDONE 3 MG ER TABLET PO SCH (20:32)
[2019-02-09 06:11] VITALS: BP 118/72
[2019-02-09 08:15] VITALS: BP 100/60
[2019-02-09] MEDS: PALIPERIDONE 3 MG ER TABLET PO SCH (21:03)
[2019-02-10 01:16] VITALS: BP 116/63
[2019-02-10 08:35] VITALS: BP 114/67
[2019-02-10] MEDS ORDERED: PALIPERIDONE PALMITATE 234 MG/1.5 ML SYRINGE IM SCH (09:00)
[2019-02-10 16:16] VITALS: BP 104/70
[2019-02-10] MEDS: PALIPERIDONE 6 MG ER TABLET PO SCH (20:44)
[2019-02-11] MEDS: DIVALPROEX SODIUM 500 MG ER TABLET PO SCH ×2 (12:40→16:38)
[2019-02-11 14:34] VITALS: BP 108/61
[2019-02-11 16:08] VITALS: BP 125/82
[2019-02-11] MEDS: PALIPERIDONE 6 MG ER TABLET PO SCH (20:23)
[2019-02-12 08:04] VITALS: BP 133/68
[2019-02-12] MEDS: DIVALPROEX SODIUM 500 MG ER TABLET PO SCH ×2 (08:51→16:25)
[2019-02-12 16:37] VITALS: BP 116/64
[2019-02-12] MEDS: PALIPERIDONE 6 MG ER TABLET PO SCH (20:30)
[2019-02-13 01:03] VITALS: BP 118/72
[2019-02-13 08:07] LABS: BASOPHILS % (AUTO) 0.7 % (0.0-2.0); EOSINOPHILS % (AUTO) 6.1 % (1.0-6.0); HEMATOCRIT 47.5 % (41-53); HEMOGLOBIN 15.4 g/dL (13.5-17.5); LYMPHOCYTES # (AUTO) 2.2 K/uL (1.0-4.8); LYMPHOCYTES % (AUTO) 49.6 % (22.0-44.0); MEAN CORPUSCULAR HGB CONC 32.5 G/dL (31.0-37.0); MEAN CORPUSCULAR VOLUME 89 fL (80-100); MONOCYTES # (AUTO) 0.4 K/uL (0.1-1.0); MONOCYTES % (AUTO) 7.9 % (2.0-9.0); NEUTROPHILS # (AUTO) 1.6 K/uL (1.8-7.7); NEUTROPHILS % (AUTO) 35.7 % (40.0-70.0); PLATELET COUNT (AUTO) 199 K/uL (150-450); RED BLOOD CELL COUNT(AUTO) 5.32 MIL/uL (4.50-5.90); RED CELL DISTRIBUTION WIDTH 13.1 % (11.5-14.5)
[2019-02-13] MEDS: DIVALPROEX SODIUM 500 MG ER TABLET PO SCH (08:46)
[2019-02-13] MEDS ORDERED: DIVA-78 PO (12:39)
== END 2019-02-13 13:15 | disposition home or self-care (01) | DRG 750 ==
LOC: EMS 22:54 → B3A 02-06 03:51
PROVIDERS: ADMIT Psychiatry & Neurology Psychiatry; ATTEND Psychiatry & Neurology Psychiatry
DX: F25.0 Schizoaffective disorder, bipolar type (principal); Z91.19 Patient's noncompliance with other medical treatment and regimen; E55.9 Vitamin D deficiency, unspecified; F19.10 Other psychoactive substance abuse, uncomplicated; F17.200 Nicotine dependence, unspecified, uncomplicated; F41.9 Anxiety disorder, unspecified; K59.00 Constipation, unspecified
CPT/HCPCS: 83036; 84439; 84443; G0480

== ENCOUNTER 2019-03-03 21:20 | Inpatient (IN) | payer MEDICAID, OTHER ==
[~2019-03-03] VITALS: Ht 177.8 cm; Wt 72.1 kg
[~2019-03-03 21:20] MED LIST changes: +DIVA-78 PO; -RISP2TAB76 PO
[2019-03-03] MEDS ORDERED: ZOLPIDEM TARTRATE 10 MG TABLET PO PRN (22:45)
[2019-03-03] MEDS ORDERED: HALOPERIDOL 5 MG TABLET PO PRN (22:45)
[2019-03-04] MEDS ORDERED: NICOTINE 14 MG/24 HOUR PATCH TD PRN (00:15)
[2019-03-04] MEDS ORDERED: LOPERAMIDE HCL 2 MG CAPSULE PO PRN (00:15)
[2019-03-04] MEDS ORDERED: IBUPROFEN 400 MG TABLET PO PRN (00:15)
[2019-03-04] MEDS ORDERED: ONDANSETRON HCL 4 MG TABLET PO PRN (00:15)
[2019-03-04] MEDS ORDERED: PETROLATUM,WHITE 28 GM JELLY TP PRN (00:15)
[2019-03-04] MEDS ORDERED: ALBUTEROL SULFATE HFA 90 MCG/PUFF 8 GM INHALER IH PRN (00:15)
[2019-03-04] MEDS ORDERED: ACETAMINOPHEN 325 MG TABLET PO PRN (00:15)
[2019-03-04] MEDS ORDERED: MAG HYDROX/AL HYDROX/SIMETH ES 30 ML SUSPENSION UDCUP PO PRN (00:15)
[2019-03-04] MEDS ORDERED: MAGNESIUM HYDROXIDE SUSPENSION 30 ML UDCUP PO PRN (00:15)
[2019-03-04] MEDS ORDERED: CloNIDine HCL 0.1 MG TABLET PO PRN (00:15)
[2019-03-04] MEDS ORDERED: DOCUSATE SODIUM 100 MG CAPSULE PO PRN (00:15)
[2019-03-04] MEDS ORDERED: GuaiFENesin/D-METHORPHAN [SUGAR-FREE] 200-20MG/10 ML SYRUP UDCUP PO PRN (00:15)
[2019-03-04 01:15] LABS: BASOPHILS % (AUTO) 0.7 % (0.0-2.0); EOSINOPHILS % (AUTO) 3.1 % (1.0-6.0); HEMATOCRIT 47.2 % (41-53); HEMOGLOBIN 15.8 g/dL (13.5-17.5); LYMPHOCYTES # (AUTO) 3.4 K/uL (1.0-4.8); LYMPHOCYTES % (AUTO) 36.8 % (22.0-44.0); MEAN CORPUSCULAR HEMOGLOBIN 29.2 pg (26.0-34.0); MEAN CORPUSCULAR HGB CONC 33.5 G/dL (31.0-37.0); MEAN CORPUSCULAR VOLUME 87 fL (80-100); MONOCYTES # (AUTO) 1.1 K/uL (0.1-1.0); MONOCYTES % (AUTO) 11.2 % (2.0-9.0); NEUTROPHILS # (AUTO) 4.5 K/uL (1.8-7.7); NEUTROPHILS % (AUTO) 48.2 % (40.0-70.0); PLATELET COUNT (AUTO) 246 K/uL (150-450); RED BLOOD CELL COUNT(AUTO) 5.43 MIL/uL (4.50-5.90); RED CELL DISTRIBUTION WIDTH 13.2 % (11.5-14.5)
[2019-03-04] MEDS ORDERED: HALOPERIDOL 5 MG TABLET PO ONE (01:15)
[2019-03-04] MEDS ORDERED: LORazepam 2 MG TABLET PO ONE (01:15)
[2019-03-04] MEDS ORDERED: LORazepam 2 MG/ML VIAL ONE (01:18)
[2019-03-04] MEDS ORDERED: HALOPERIDOL LACTATE 5 MG/ML VIAL ONE (01:18)
[2019-03-04 01:24] LABS: CARBON DIOXIDE 28 mmol/L (22-29); CHLORIDE 102 mmol/L (98-107); POTASSIUM 3.9 mmol/L (3.5-5.1); SODIUM SERUM 139 mmol/L (136-145)
[2019-03-04 01:25] LABS: ANION GAP 9 mmol/L (8-16); CALCIUM, TOTAL 9.3 mg/dL (8.8-10.5); CREATININE 1.15 mg/dL (0.60-1.30); GLOMERULAR FILTR. RATE CALC > 60 mL/min (>60); GLUCOSE,RANDOM 102 mg/dL (70-110); UREA NITROGEN, BLOOD 13 mg/dL (7-18)
[2019-03-04 01:28] LABS: ALANINE AMINOTRANSFERASE 15 U/L (12-78); ALBUMIN 4.3 g/dL (3.4-5.0); ALKALINE PHOSPHATASE 57 U/L (46-116); ASPARTATE AMINOTRANSFERASE 16 U/L (15-37); BILIRUBIN,TOTAL 0.4 mg/dL (0.1-1.0); CHOL/HDL RATIO 1.9 (4.2-7.3); CHOLESTEROL 129 mg/dL (131-200); HDL CHOLESTEROL 69 mg/dL (40-60); LDL CHOL (CALC.) 52 mg/dL (0-130); TOTAL PROTEIN, SERUM 7.5 g/dL (6.4-8.2); TRIGLYCERIDES 38 mg/dL (15-150)
[2019-03-04 01:28] LABS: AMPHET/METH SCREEN,URINE POSITIVE (NEGATIVE); BARBITURATE SCREEN, URINE NEGATIVE (NEGATIVE); BENZODIAZEPINES SCREEN,URINE NEGATIVE (NEGATIVE); CANNABINOID SCREEN,URINE NEGATIVE (NEGATIVE); COCAINE SCREEN,URINE NEGATIVE (NEGATIVE); METHADONE SCREEN, URINE NEGATIVE (NEGATIVE); OPIATE SCREEN,URINE NEGATIVE (NEGATIVE); PHENCYCLIDINE SCREEN,URINE NEGATIVE (NEGATIVE)
[2019-03-04] MEDS ORDERED: HALOPERIDOL LACTATE 5 MG/ML VIAL IM ONE (01:30)
[2019-03-04] MEDS ORDERED: LORazepam 2 MG/ML VIAL IM ONE (01:30)
[2019-03-04] MEDS: PALIPERIDONE 6 MG ER TABLET PO SCH ×2 (01:30→21:44)
[2019-03-04 03:44] VITALS: BP 110/62
[2019-03-04] MEDS ORDERED: INFLUENZA VIRUS VACCINE QVS 2019-20 (3YR+)/PF 60 MCG/0.5 ML SYRINGE IM ONE (07:15)
[2019-03-04] MEDS ORDERED: DIVALPROEX SODIUM 250 MG DR TABLET PO SCH (09:00)
[2019-03-04] MEDS: DIVALPROEX SODIUM 500 MG ER TABLET PO SCH ×2 (09:21→17:15)
[2019-03-04] MEDS: LORazepam 2 MG TABLET PO PRN (09:21)
[2019-03-04 09:50] VITALS: BP 114/66
[2019-03-04 16:00] VITALS: BP 110/65
[2019-03-05] MEDS: DIVALPROEX SODIUM 500 MG ER TABLET PO SCH ×2 (08:52→16:24)
[2019-03-05 16:18] VITALS: BP 122/70
[2019-03-05] MEDS: LORazepam 2 MG TABLET PO PRN (16:26)
[2019-03-05] MEDS: PALIPERIDONE 6 MG ER TABLET PO SCH (20:27)
[2019-03-06 09:46] VITALS: BP 126/75
[2019-03-06] MEDS: DIVALPROEX SODIUM 500 MG ER TABLET PO SCH ×2 (09:59→16:37)
[2019-03-06 16:00] VITALS: BP 111/64
[2019-03-06] MEDS: PALIPERIDONE 6 MG ER TABLET PO SCH (21:01)
[2019-03-07 05:32] VITALS: BP 113/76
[2019-03-07 08:20] VITALS: BP 101/71
[2019-03-07] MEDS: DIVALPROEX SODIUM 500 MG ER TABLET PO SCH (09:01)
[2019-03-07] MEDS ORDERED: PALI6 PO (09:32)
== END 2019-03-07 10:23 | disposition home or self-care (01) | DRG 750 ==
LOC: EMS 21:21 → B3A 23:43
PROVIDERS: ADMIT Psychiatry & Neurology Psychiatry; ATTEND Psychiatry & Neurology Psychiatry
DX: F25.1 Schizoaffective disorder, depressive type (principal); F15.20 Other stimulant dependence, uncomplicated; R45.851 Suicidal ideations; E56.9 Vitamin deficiency, unspecified; G44.209 Tension-type headache, unspecified, not intractable; F17.210 Nicotine dependence, cigarettes, uncomplicated; F41.9 Anxiety disorder, unspecified; Z79.899 Other long term (current) drug therapy; Z91.19 Patient's noncompliance with other medical treatment and regimen; Z91.5 Personal history of self-harm; Z23 Encounter for immunization; Z71.6 Tobacco abuse counseling; Z71.51 Drug abuse counseling and surveillance of drug abuser
CPT/HCPCS: 80307; 87081; 90686; G0480; J1630; J2060

== ENCOUNTER 2019-03-12 10:19 | Inpatient (IN) | payer MEDICAID ==
[~2019-03-12 10:19] MED LIST changes: +PALI6 PO
[2019-03-12] MEDS ORDERED: PALI234D IM (11:23)
[2019-03-12] MEDS ORDERED: ZOLPIDEM TARTRATE 10 MG TABLET PO PRN (12:15)
[2019-03-12] MEDS ORDERED: PALIPERIDONE PALMITATE 234 MG/1.5 ML SYRINGE IM SCH (15:00)
[2019-03-12 16:21] VITALS: BP 114/84
[2019-03-12] MEDS: DIVALPROEX SODIUM 500 MG ER TABLET PO SCH (17:30)
[2019-03-12] MEDS: PALIPERIDONE 6 MG ER TABLET PO SCH (20:17)
[2019-03-13 05:52] VITALS: BP 112/78
[2019-03-13 08:11] VITALS: BP 136/60
[2019-03-13] MEDS: DIVALPROEX SODIUM 500 MG ER TABLET PO SCH ×2 (08:32→16:53)
[2019-03-13 16:01] VITALS: BP 109/73
[2019-03-13 16:05] VITALS: BP 108/67
[2019-03-13] MEDS: LORazepam 2 MG TABLET PO PRN (16:53)
[2019-03-13] MEDS: HALOPERIDOL 5 MG TABLET PO PRN (16:53)
[2019-03-13] MEDS: PALIPERIDONE 6 MG ER TABLET PO SCH (21:00)
[2019-03-14 06:54] VITALS: BP 103/62
[2019-03-14 08:08] LABS: BASOPHILS % (AUTO) 0.8 % (0.0-2.0); EOSINOPHILS % (AUTO) 5.9 % (1.0-6.0); HEMOGLOBIN 15.3 g/dL (13.5-17.5); LYMPHOCYTES # (AUTO) 2.7 K/uL (1.0-4.8); LYMPHOCYTES % (AUTO) 44.9 % (22.0-44.0); MEAN CORPUSCULAR HEMOGLOBIN 29.1 pg (26.0-34.0); MEAN CORPUSCULAR HGB CONC 33.9 G/dL (31.0-37.0); MEAN CORPUSCULAR VOLUME 86 fL (80-100); MONOCYTES # (AUTO) 0.4 K/uL (0.1-1.0); MONOCYTES % (AUTO) 6.9 % (2.0-9.0); NEUTROPHILS # (AUTO) 2.5 K/uL (1.8-7.7); NEUTROPHILS % (AUTO) 41.5 % (40.0-70.0); PLATELET COUNT (AUTO) 215 K/uL (150-450); RED BLOOD CELL COUNT(AUTO) 5.24 MIL/uL (4.50-5.90); RED CELL DISTRIBUTION WIDTH 12.9 % (11.5-14.5)
[2019-03-14] MEDS: DIVALPROEX SODIUM 500 MG ER TABLET PO SCH ×2 (08:23→16:24)
[2019-03-14 08:49] LABS: ALANINE AMINOTRANSFERASE 13 U/L (12-78); ALBUMIN 3.6 g/dL (3.4-5.0); ALKALINE PHOSPHATASE 40 U/L (46-116); ANION GAP 6 mmol/L (8-16); ASPARTATE AMINOTRANSFERASE 11 U/L (15-37); BILIRUBIN,TOTAL 0.4 mg/dL (0.1-1.0); CALCIUM, TOTAL 8.5 mg/dL (8.8-10.5); CARBON DIOXIDE 31 mmol/L (22-29); CHLORIDE 104 mmol/L (98-107); CHOL/HDL RATIO 2.8 (4.2-7.3); CHOLESTEROL 113 mg/dL (131-200); CREATININE 1.14 mg/dL (0.60-1.30); FREE T4 (FREE THYROXINE) 0.84 ng/dL (0.76-1.46); GLOMERULAR FILTR. RATE CALC > 60 mL/min (>60); GLUCOSE,RANDOM 86 mg/dL (70-110); HDL CHOLESTEROL 40 mg/dL (40-60); LDL CHOL (CALC.) 66 mg/dL (0-130); POTASSIUM 4.6 mmol/L (3.5-5.1); SODIUM SERUM 141 mmol/L (136-145); THYROID STIMULATING HORMONE 0.63 uIU/mL (0.36-3.74); TOTAL PROTEIN, SERUM 6.5 g/dL (6.4-8.2); TRIGLYCERIDES 37 mg/dL (15-150)
[2019-03-14 09:08] LABS: UREA NITROGEN, BLOOD 21 mg/dL (7-18)
[2019-03-14 10:04] VITALS: BP 122/61
[2019-03-14] MEDS: LORazepam 2 MG TABLET PO PRN (16:24)
[2019-03-14] MEDS: HALOPERIDOL 5 MG TABLET PO PRN (16:24)
[2019-03-14 16:32] VITALS: BP 126/79
[2019-03-14] MEDS: PALIPERIDONE 6 MG ER TABLET PO SCH (20:44)
[2019-03-15 08:07] VITALS: BP 121/67
[2019-03-15] MEDS: DIVALPROEX SODIUM 500 MG ER TABLET PO SCH ×2 (08:51→16:35)
[2019-03-15 16:00] VITALS: BP 122/65
[2019-03-15] MEDS: HALOPERIDOL 5 MG TABLET PO PRN (16:35)
[2019-03-15] MEDS: LORazepam 2 MG TABLET PO PRN (16:35)
[2019-03-16 04:00] VITALS: BP 128/78
[2019-03-16 09:17] VITALS: BP 108/70
[2019-03-16] MEDS: DIVALPROEX SODIUM 500 MG ER TABLET PO SCH (09:23)
== END 2019-03-16 11:25 | disposition home or self-care (01) | DRG 750 ==
LOC: B3A 12:42
PROVIDERS: ADMIT Psychiatry & Neurology Psychiatry; ATTEND Psychiatry & Neurology Psychiatry
DX: F25.1 Schizoaffective disorder, depressive type (principal); R45.851 Suicidal ideations; F15.20 Other stimulant dependence, uncomplicated; E55.9 Vitamin D deficiency, unspecified; F10.10 Alcohol abuse, uncomplicated; F41.9 Anxiety disorder, unspecified; Z91.5 Personal history of self-harm; Z91.19 Patient's noncompliance with other medical treatment and regimen; Z79.899 Other long term (current) drug therapy
CPT/HCPCS: 84439; 84443; 87081

== ENCOUNTER 2019-04-05 06:00 | Inpatient (IN) | payer MEDICAID, OTHER ==
[~2019-04-05] VITALS: Ht 175.3 cm; Wt 66.5 kg
[~2019-04-05 06:00] MED LIST changes: -PALI156D IM; +PALI234D IM; -PALI6 PO
[2019-04-05 07:06] LABS: AMPHET/METH SCREEN,URINE POSITIVE (NEGATIVE); BARBITURATE SCREEN, URINE NEGATIVE (NEGATIVE); BENZODIAZEPINES SCREEN,URINE NEGATIVE (NEGATIVE); CANNABINOID SCREEN,URINE NEGATIVE (NEGATIVE); COCAINE SCREEN,URINE NEGATIVE (NEGATIVE); METHADONE SCREEN, URINE NEGATIVE (NEGATIVE); OPIATE SCREEN,URINE NEGATIVE (NEGATIVE)
[2019-04-05 07:19] LABS: PHENCYCLIDINE SCREEN,URINE NEGATIVE (NEGATIVE)
[2019-04-05] MEDS ORDERED: ZOLPIDEM TARTRATE 10 MG TABLET PO PRN (08:45)
[2019-04-05 09:50] LABS: BASOPHILS % (AUTO) 0.9 % (0.0-2.0); EOSINOPHILS % (AUTO) 1.3 % (1.0-6.0); HEMATOCRIT 44.8 % (41-53); HEMOGLOBIN 14.8 g/dL (13.5-17.5); LYMPHOCYTES # (AUTO) 2.5 K/uL (1.0-4.8); LYMPHOCYTES % (AUTO) 32.2 % (22.0-44.0); MEAN CORPUSCULAR HEMOGLOBIN 29.1 pg (26.0-34.0); MEAN CORPUSCULAR HGB CONC 33.1 G/dL (31.0-37.0); MEAN CORPUSCULAR VOLUME 88 fL (80-100); MONOCYTES # (AUTO) 0.5 K/uL (0.1-1.0); MONOCYTES % (AUTO) 6.7 % (2.0-9.0); NEUTROPHILS # (AUTO) 4.5 K/uL (1.8-7.7); NEUTROPHILS % (AUTO) 58.9 % (40.0-70.0); PLATELET COUNT (AUTO) 238 K/uL (150-450); RED CELL DISTRIBUTION WIDTH 13.6 % (11.5-14.5)
[2019-04-05 09:57] LABS: ANION GAP 7 mmol/L (8-16); CALCIUM, TOTAL 9.1 mg/dL (8.8-10.5); CARBON DIOXIDE 30 mmol/L (22-29); CHLORIDE 101 mmol/L (98-107); CREATININE 1.08 mg/dL (0.60-1.30); GLOMERULAR FILTR. RATE CALC > 60 mL/min (>60); GLUCOSE,RANDOM 101 mg/dL (70-110); POTASSIUM 3.8 mmol/L (3.5-5.1); SODIUM SERUM 138 mmol/L (136-145); UREA NITROGEN, BLOOD 9 mg/dL (7-18)
[2019-04-05 10:03] LABS: ALANINE AMINOTRANSFERASE 19 U/L (12-78); ALBUMIN 4.1 g/dL (3.4-5.0); ALKALINE PHOSPHATASE 45 U/L (46-116); ASPARTATE AMINOTRANSFERASE 14 U/L (15-37); BILIRUBIN,TOTAL 0.8 mg/dL (0.1-1.0); TOTAL PROTEIN, SERUM 7.3 g/dL (6.4-8.2); VALPROIC ACID < 3 mcg/mL (50-100)
[2019-04-05 10:07] LABS: APPEARANCE,URINE CLEAR (CLEAR); BILIRUBIN,URINE NEGATIVE (NEGATIVE); GLUCOSE, URINE (UA) NEGATIVE (NEGATIVE); KETONES,URINE NEGATIVE (NEGATIVE); LEUKOCYTE ESTERASE ,URINE NEGATIVE (NEGATIVE); NITRATE,URINE NEGATIVE (NEGATIVE); OCCULT BLOOD,URINE NEGATIVE (NEGATIVE); PH,URINE 5.5 (5.0-8.0); PROTEIN,URINE NEGATIVE (NEGATIVE)
[2019-04-05 11:03] VITALS: BP 123/84
[2019-04-05 11:23] VITALS: BP 123/84
[2019-04-05 11:24] VITALS: BP 123/84
[2019-04-05] MEDS: LORazepam 2 MG TABLET PO PRN (11:45)
[2019-04-05] MEDS: HALOPERIDOL 5 MG TABLET PO PRN (11:46)
[2019-04-05] MEDS ORDERED: -PHARMACY VACCINE NOTE- MISC ONE (12:00)
[2019-04-05] MEDS: DIVALPROEX SODIUM 500 MG DR TABLET PO SCH (17:00)
[2019-04-06 07:07] LABS: CHOL/HDL RATIO 2.3 (4.2-7.3); FREE T4 (FREE THYROXINE) 0.86 ng/dL (0.76-1.46); THYROID STIMULATING HORMONE 0.59 uIU/mL (0.36-3.74)
[2019-04-06] MEDS: LORazepam 2 MG TABLET PO PRN (10:48)
[2019-04-06] MEDS: DIVALPROEX SODIUM 500 MG DR TABLET PO SCH ×2 (10:48→17:06)
[2019-04-06] MEDS: HALOPERIDOL 5 MG TABLET PO PRN (10:48)
[2019-04-06 13:59] VITALS: BP 131/63
[2019-04-06 17:50] VITALS: BP 119/65
[2019-04-07] MEDS: DIVALPROEX SODIUM 500 MG DR TABLET PO SCH ×2 (09:01→16:11)
[2019-04-07 09:56] VITALS: BP 109/72
[2019-04-07 16:05] VITALS: BP 106/64
[2019-04-07] MEDS: LORazepam 2 MG TABLET PO PRN (16:11)
[2019-04-08] MEDS: DIVALPROEX SODIUM 500 MG DR TABLET PO SCH ×2 (08:41→16:01)
[2019-04-08 10:24] VITALS: BP 95/50
[2019-04-08] MEDS: LORazepam 2 MG TABLET PO PRN (15:56)
[2019-04-08 16:13] VITALS: BP 104/77
[2019-04-09] MEDS: DIVALPROEX SODIUM 500 MG DR TABLET PO SCH ×2 (08:15→16:32)
[2019-04-09 11:46] VITALS: BP 102/54
[2019-04-09] MEDS ORDERED: IBUPROFEN 400 MG TABLET PO PRN (16:15)
[2019-04-09] MEDS ORDERED: NICOTINE 14 MG/24 HOUR PATCH TD PRN (16:15)
[2019-04-09] MEDS ORDERED: PETROLATUM,WHITE 28 GM JELLY TP PRN (16:15)
[2019-04-09] MEDS ORDERED: MAGNESIUM HYDROXIDE SUSPENSION 30 ML UDCUP PO PRN (16:15)
[2019-04-09] MEDS ORDERED: ACETAMINOPHEN 325 MG TABLET PO PRN (16:15)
[2019-04-09] MEDS ORDERED: ONDANSETRON HCL 4 MG TABLET PO PRN (16:15)
[2019-04-09] MEDS ORDERED: MAG HYDROX/AL HYDROX/SIMETH ES 30 ML SUSPENSION UDCUP PO PRN (16:15)
[2019-04-09] MEDS ORDERED: LOPERAMIDE HCL 2 MG CAPSULE PO PRN (16:15)
[2019-04-09] MEDS ORDERED: CloNIDine HCL 0.1 MG TABLET PO PRN (16:15)
[2019-04-09] MEDS ORDERED: ALBUTEROL SULFATE HFA 90 MCG/PUFF 8 GM INHALER IH PRN (16:15)
[2019-04-09] MEDS ORDERED: DOCUSATE SODIUM 100 MG CAPSULE PO PRN (16:15)
[2019-04-09] MEDS ORDERED: GuaiFENesin/D-METHORPHAN [SUGAR-FREE] 200-20MG/10 ML SYRUP UDCUP PO PRN (16:15)
[2019-04-09 16:57] VITALS: BP 91/46
[2019-04-10] MEDS: DIVALPROEX SODIUM 500 MG DR TABLET PO SCH ×2 (09:14→16:55)
[2019-04-10] MEDS ORDERED: PALIPERIDONE PALMITATE 234 MG/1.5 ML SYRINGE IM SCH (12:15)
[2019-04-10 12:39] VITALS: BP 115/73
[2019-04-10 16:00] VITALS: BP 101/69
[2019-04-11] MEDS: DIVALPROEX SODIUM 500 MG DR TABLET PO SCH (08:29)
[2019-04-11 11:26] VITALS: BP 111/70
== END 2019-04-11 12:30 | disposition home or self-care (01) | DRG 750 ==
LOC: EMS 06:00 → 3EC 10:06
PROVIDERS: ADMIT Psychiatry & Neurology Psychiatry; ATTEND Psychiatry & Neurology Psychiatry
DX: F25.1 Schizoaffective disorder, depressive type (principal); R45.851 Suicidal ideations; Z91.19 Patient's noncompliance with other medical treatment and regimen; E55.9 Vitamin D deficiency, unspecified; F10.10 Alcohol abuse, uncomplicated; F15.90 Other stimulant use, unspecified, uncomplicated; F41.9 Anxiety disorder, unspecified; F17.210 Nicotine dependence, cigarettes, uncomplicated; Z79.899 Other long term (current) drug therapy; Z91.5 Personal history of self-harm
CPT/HCPCS: 84439; 84443; 87081; G0480

== ENCOUNTER 2019-05-03 16:19 | Inpatient (IN) | payer MEDICAID, OTHER ==
[~2019-05-03] VITALS: Ht 154.9 cm; Wt 70.0 kg
[2019-05-03] MEDS ORDERED: LORazepam 2 MG TABLET PO ONE (17:30)
[2019-05-03] MEDS ORDERED: HALOPERIDOL 5 MG TABLET PO ONE (17:30)
[2019-05-03 18:01] LABS: BASOPHILS % (AUTO) 0.9 % (0.0-2.0); EOSINOPHILS % (AUTO) 3.3 % (1.0-6.0); HEMATOCRIT 46.1 % (41-53); HEMOGLOBIN 15.5 g/dL (13.5-17.5); LYMPHOCYTES # (AUTO) 2.2 K/uL (1.0-4.8); LYMPHOCYTES % (AUTO) 28.1 % (22.0-44.0); MEAN CORPUSCULAR HEMOGLOBIN 29.7 pg (26.0-34.0); MEAN CORPUSCULAR HGB CONC 33.7 G/dL (31.0-37.0); MEAN CORPUSCULAR VOLUME 88 fL (80-100); MONOCYTES # (AUTO) 0.7 K/uL (0.1-1.0); MONOCYTES % (AUTO) 8.4 % (2.0-9.0); NEUTROPHILS # (AUTO) 4.7 K/uL (1.8-7.7); NEUTROPHILS % (AUTO) 59.3 % (40.0-70.0); PLATELET COUNT (AUTO) 215 K/uL (150-450); RED BLOOD CELL COUNT(AUTO) 5.22 MIL/uL (4.50-5.90); RED CELL DISTRIBUTION WIDTH 13.7 % (11.5-14.5)
[2019-05-03 18:10] LABS: ANION GAP 9 mmol/L (8-16); CALCIUM, TOTAL 9.3 mg/dL (8.8-10.5); CARBON DIOXIDE 30 mmol/L (22-29); CHLORIDE 102 mmol/L (98-107); CREATININE 1.26 mg/dL (0.60-1.30); GLOMERULAR FILTR. RATE CALC > 60 mL/min (>60); GLUCOSE,RANDOM 94 mg/dL (70-110); POTASSIUM 3.5 mmol/L (3.5-5.1); SODIUM SERUM 141 mmol/L (136-145); UREA NITROGEN, BLOOD 9 mg/dL (7-18)
[2019-05-03 18:16] LABS: ALANINE AMINOTRANSFERASE 23 U/L (12-78); ALBUMIN 4.5 g/dL (3.4-5.0); ALKALINE PHOSPHATASE 54 U/L (46-116); ASPARTATE AMINOTRANSFERASE 43 U/L (15-37); BILIRUBIN,TOTAL 0.5 mg/dL (0.1-1.0); TOTAL PROTEIN, SERUM 8.1 g/dL (6.4-8.2)
[2019-05-03 18:28] LABS: VALPROIC ACID < 3 mcg/mL (50-100)
[2019-05-03] MEDS ORDERED: ZOLPIDEM TARTRATE 10 MG TABLET PO PRN (18:30)
[2019-05-03] MEDS ORDERED: HALOPERIDOL 5 MG TABLET PO PRN (18:30)
[2019-05-04 05:54] VITALS: BP 122/63
[2019-05-04 08:27] VITALS: BP 110/76
[2019-05-04 08:46] LABS: CHOL/HDL RATIO 1.8 (4.2-7.3); FREE T4 (FREE THYROXINE) 0.9 ng/dL (0.76-1.46); THYROID STIMULATING HORMONE 1.13 uIU/mL (0.36-3.74)
[2019-05-04] MEDS ORDERED: CloNIDine HCL 0.1 MG TABLET PO PRN (11:15)
[2019-05-04] MEDS ORDERED: ALBUTEROL SULFATE HFA 90 MCG/PUFF 8 GM INHALER IH PRN (11:15)
[2019-05-04] MEDS ORDERED: DOCUSATE SODIUM 100 MG CAPSULE PO PRN (11:15)
[2019-05-04] MEDS ORDERED: IBUPROFEN 400 MG TABLET PO PRN (11:15)
[2019-05-04] MEDS ORDERED: LOPERAMIDE HCL 2 MG CAPSULE PO PRN (11:15)
[2019-05-04] MEDS ORDERED: ACETAMINOPHEN 325 MG TABLET PO PRN (11:15)
[2019-05-04] MEDS ORDERED: ONDANSETRON HCL 4 MG TABLET PO PRN (11:15)
[2019-05-04] MEDS ORDERED: MAG HYDROX/AL HYDROX/SIMETH ES 30 ML SUSPENSION UDCUP PO PRN (11:15)
[2019-05-04] MEDS ORDERED: GuaiFENesin/D-METHORPHAN [SUGAR-FREE] 200-20MG/10 ML SYRUP UDCUP PO PRN (11:15)
[2019-05-04] MEDS ORDERED: PETROLATUM,WHITE 28 GM JELLY TP PRN (11:15)
[2019-05-04] MEDS ORDERED: NICOTINE 14 MG/24 HOUR PATCH TD PRN (11:15)
[2019-05-04] MEDS ORDERED: MAGNESIUM HYDROXIDE SUSPENSION 30 ML UDCUP PO PRN (11:15)
[2019-05-04] MEDS: DIVALPROEX SODIUM 500 MG ER TABLET PO SCH (16:53)
[2019-05-05] MEDS ORDERED: -PHARMACY VACCINE NOTE- MISC ONE (06:15)
[2019-05-05 06:22] VITALS: BP 101/62
[2019-05-05] MEDS ORDERED: PALIPERIDONE PALMITATE 234 MG/1.5 ML SYRINGE IM SCH (09:00)
[2019-05-05] MEDS: DIVALPROEX SODIUM 500 MG ER TABLET PO SCH ×2 (09:07→16:18)
[2019-05-05 16:00] VITALS: BP 104/66
[2019-05-05] MEDS: LORazepam 2 MG TABLET PO PRN (16:18)
[2019-05-06 08:09] VITALS: BP 110/58
[2019-05-06] MEDS: DIVALPROEX SODIUM 500 MG ER TABLET PO SCH ×2 (09:33→17:11)
[2019-05-06] MEDS: LORazepam 2 MG TABLET PO PRN (16:30)
[2019-05-06 16:42] VITALS: BP 112/87
[2019-05-07 06:40] VITALS: BP 102/59
[2019-05-07 08:12] VITALS: BP 129/76
[2019-05-07] MEDS: DIVALPROEX SODIUM 500 MG ER TABLET PO SCH (08:52)
== END 2019-05-07 15:05 | disposition home or self-care (01) | DRG 750 ==
LOC: EMS 16:21 → B3A 18:56
PROVIDERS: ADMIT Psychiatry & Neurology Psychiatry; ATTEND Psychiatry & Neurology Psychiatry
DX: F25.1 Schizoaffective disorder, depressive type (principal); Z91.19 Patient's noncompliance with other medical treatment and regimen; E55.9 Vitamin D deficiency, unspecified; F10.10 Alcohol abuse, uncomplicated; F15.90 Other stimulant use, unspecified, uncomplicated; R45.87 Impulsiveness; Z79.899 Other long term (current) drug therapy; Z87.891 Personal history of nicotine dependence; Z91.5 Personal history of self-harm; Z71.51 Drug abuse counseling and surveillance of drug abuser
CPT/HCPCS: 84439; 84443; 87081; G0480

== ENCOUNTER 2019-09-13 23:46 | Inpatient (IN) | payer MEDICAID, OTHER ==
[~2019-09-13] VITALS: Ht 177.8 cm; Wt 72.6 kg
[~2019-09-13 23:46] MED LIST changes: -PALI234D IM
[2019-09-14 00:52] LABS: HEMATOCRIT 47.4 % (41-53); HEMOGLOBIN 15.5 g/dL (13.5-17.5); LYMPHOCYTES # (AUTO) 3.1 K/uL (1.0-4.8); MEAN CORPUSCULAR HEMOGLOBIN 28.8 pg (26.0-34.0); MEAN CORPUSCULAR HGB CONC 32.7 G/dL (31.0-37.0); MEAN CORPUSCULAR VOLUME 88 fL (80-100); MONOCYTES # (AUTO) 0.9 K/uL (0.1-1.0); MONOCYTES % (AUTO) 5.3 % (2.0-9.0); NEUTROPHILS # (AUTO) 7.8 K/uL (1.8-7.7); PLATELET COUNT (AUTO) 251 K/uL (150-450); RED BLOOD CELL COUNT(AUTO) 5.39 MIL/uL (4.50-5.90); RED CELL DISTRIBUTION WIDTH 12.9 % (11.5-14.5)
[2019-09-14 00:53] LABS: EOSINOPHILS % (AUTO) 30.7 % (1.0-6.0)
[2019-09-14 01:04] LABS: ANION GAP 7 mmol/L (8-16); CALCIUM, TOTAL 9.7 mg/dL (8.8-10.5); CARBON DIOXIDE 32 mmol/L (22-29); CHLORIDE 102 mmol/L (98-107); CREATININE 1.23 mg/dL (0.60-1.30); GLOMERULAR FILTR. RATE CALC > 60 mL/min (>60); GLUCOSE,RANDOM 108 mg/dL (70-110); POTASSIUM 4.6 mmol/L (3.5-5.1); SODIUM SERUM 141 mmol/L (136-145); UREA NITROGEN, BLOOD 9 mg/dL (7-18)
[2019-09-14 01:09] LABS: ALANINE AMINOTRANSFERASE 45 U/L (12-78); ALBUMIN 4.5 g/dL (3.4-5.0); ALKALINE PHOSPHATASE 64 U/L (46-116); ASPARTATE AMINOTRANSFERASE 22 U/L (15-37); BILIRUBIN,TOTAL 0.2 mg/dL (0.1-1.0)
[2019-09-14 01:10] LABS: VALPROIC ACID < 3 mcg/mL (50-100)
[2019-09-14] MEDS ORDERED: PALI1.5T PO (02:01)
[2019-09-14 02:37] LABS: AMPHET/METH SCREEN,URINE POSITIVE (NEGATIVE); BARBITURATE SCREEN, URINE NEGATIVE (NEGATIVE); BENZODIAZEPINES SCREEN,URINE NEGATIVE (NEGATIVE); CANNABINOID SCREEN,URINE NEGATIVE (NEGATIVE); COCAINE SCREEN,URINE NEGATIVE (NEGATIVE); METHADONE SCREEN, URINE NEGATIVE (NEGATIVE); OPIATE SCREEN,URINE NEGATIVE (NEGATIVE)
[2019-09-14 02:38] LABS: PHENCYCLIDINE SCREEN,URINE NEGATIVE (NEGATIVE)
[2019-09-14] MEDS ORDERED: ZOLPIDEM TARTRATE 10 MG TABLET PO PRN (03:00)
[2019-09-14] MEDS ORDERED: HALOPERIDOL 5 MG TABLET PO PRN (03:00)
[2019-09-14] MEDS: LORazepam 2 MG TABLET PO PRN ×2 (04:49→09:21)
[2019-09-14 04:56] VITALS: BP 133/65
[2019-09-14 05:00] LABS: APPEARANCE,URINE CLEAR (CLEAR); BILIRUBIN,URINE NEGATIVE (NEGATIVE); GLUCOSE, URINE (UA) NEGATIVE (NEGATIVE); KETONES,URINE NEGATIVE (NEGATIVE); LEUKOCYTE ESTERASE ,URINE NEGATIVE (NEGATIVE); NITRATE,URINE NEGATIVE (NEGATIVE); OCCULT BLOOD,URINE NEGATIVE (NEGATIVE); PROTEIN,URINE NEGATIVE (NEGATIVE); UROBILINOGEN,URINE 0.2 mg/dL (<=1.0)
[2019-09-14 08:30] VITALS: BP 130/70
[2019-09-14] MEDS ORDERED: GuaiFENesin/D-METHORPHAN [SUGAR-FREE] 200-20MG/10 ML SYRUP UDCUP PO PRN (09:45)
[2019-09-14] MEDS ORDERED: MAGNESIUM HYDROXIDE SUSPENSION 30 ML UDCUP PO PRN (09:45)
[2019-09-14] MEDS ORDERED: ALBUTEROL SULFATE HFA 90 MCG/PUFF 8 GM INHALER IH PRN (09:45)
[2019-09-14] MEDS ORDERED: IBUPROFEN 400 MG TABLET PO PRN (09:45)
[2019-09-14] MEDS ORDERED: ONDANSETRON HCL 4 MG TABLET PO PRN (09:45)
[2019-09-14] MEDS ORDERED: NICOTINE 14 MG/24 HOUR PATCH TD PRN (09:45)
[2019-09-14] MEDS ORDERED: CloNIDine HCL 0.1 MG TABLET PO PRN (09:45)
[2019-09-14] MEDS ORDERED: ACETAMINOPHEN 325 MG TABLET PO PRN (09:45)
[2019-09-14] MEDS ORDERED: MAG HYDROX/AL HYDROX/SIMETH ES 30 ML SUSPENSION UDCUP PO PRN (09:45)
[2019-09-14] MEDS ORDERED: DOCUSATE SODIUM 100 MG CAPSULE PO PRN (09:45)
[2019-09-14] MEDS ORDERED: PETROLATUM,WHITE 28 GM JELLY TP PRN (09:45)
[2019-09-14] MEDS ORDERED: LOPERAMIDE HCL 2 MG CAPSULE PO PRN (09:45)
[2019-09-14] MEDS ORDERED: PALIPERIDONE PALMITATE 234 MG/1.5 ML SYRINGE IM SCH (11:30)
[2019-09-14] MEDS: DIVALPROEX SODIUM 500 MG DR TABLET PO SCH (16:48)
[2019-09-14] MEDS: RisperiDONE 1 MG TABLET PO SCH (16:48)
[2019-09-14 21:07] VITALS: BP 107/59
[2019-09-15 08:30] VITALS: BP 93/65
[2019-09-15] MEDS: RisperiDONE 1 MG TABLET PO SCH ×2 (11:07→16:36)
[2019-09-15] MEDS: DIVALPROEX SODIUM 500 MG DR TABLET PO SCH ×2 (11:08→16:39)
[2019-09-15 16:24] VITALS: BP 101/68
[2019-09-16 07:17] LABS: HEMATOCRIT 46.7 % (41-53); HEMOGLOBIN 15.5 g/dL (13.5-17.5); MEAN CORPUSCULAR HEMOGLOBIN 28.8 pg (26.0-34.0); MEAN CORPUSCULAR HGB CONC 33.1 G/dL (31.0-37.0); MEAN CORPUSCULAR VOLUME 87 fL (80-100); PLATELET COUNT (AUTO) 240 K/uL (150-450); RED BLOOD CELL COUNT(AUTO) 5.37 MIL/uL (4.50-5.90); RED CELL DISTRIBUTION WIDTH 12.7 % (11.5-14.5)
[2019-09-16 08:03] LABS: BAND NEUTROPHILS % (MANUAL) 0 % (0-5)
[2019-09-16 08:05] LABS: EOSINOPHILS % (MANUAL) 50 % (1-6); LYMPHOCYTES % (MANUAL) 23 % (22-44); MONOCYTES % (MANUAL) 4 % (2-9); SEGMENTED NEUTROPHILS % 23 % (40-70)
[2019-09-16] MEDS: RisperiDONE 1 MG TABLET PO SCH ×2 (08:45→16:31)
[2019-09-16] MEDS: DIVALPROEX SODIUM 500 MG DR TABLET PO SCH ×3 (08:48→16:45)
[2019-09-16 09:39] VITALS: BP 128/52
[2019-09-16 18:22] VITALS: BP 104/71
[2019-09-17] MEDS: RisperiDONE 1 MG TABLET PO SCH ×2 (08:23→16:56)
[2019-09-17] MEDS: DIVALPROEX SODIUM 500 MG DR TABLET PO SCH ×2 (08:26→16:56)
[2019-09-17 08:50] VITALS: BP 124/88
[2019-09-17 18:21] VITALS: BP 137/50
[2019-09-18 07:42] LABS: BASOPHILS % (AUTO) 1.1 % (0.0-2.0); HEMATOCRIT 47.5 % (41-53); HEMOGLOBIN 15.8 g/dL (13.5-17.5); LYMPHOCYTES # (AUTO) 2.5 K/uL (1.0-4.8); LYMPHOCYTES % (AUTO) 17.9 % (22.0-44.0); MEAN CORPUSCULAR HEMOGLOBIN 28.8 pg (26.0-34.0); MEAN CORPUSCULAR HGB CONC 33.2 G/dL (31.0-37.0); MEAN CORPUSCULAR VOLUME 87 fL (80-100); MONOCYTES # (AUTO) 0.6 K/uL (0.1-1.0); MONOCYTES % (AUTO) 4.2 % (2.0-9.0); NEUTROPHILS # (AUTO) 3.3 K/uL (1.8-7.7); NEUTROPHILS % (AUTO) 23.7 % (40.0-70.0); PLATELET COUNT (AUTO) 228 K/uL (150-450); RED BLOOD CELL COUNT(AUTO) 5.47 MIL/uL (4.50-5.90); RED CELL DISTRIBUTION WIDTH 12.8 % (11.5-14.5)
[2019-09-18 08:03] LABS: EOSINOPHILS % (AUTO) 53.1 % (1.0-6.0)
[2019-09-18] MEDS: RisperiDONE 1 MG TABLET PO SCH (08:39)
[2019-09-18] MEDS: DIVALPROEX SODIUM 500 MG DR TABLET PO SCH (08:39)
[2019-09-18 09:00] VITALS: BP 98/46
[2019-09-18] MEDS ORDERED: VALP250C48 PO (14:41)
[2019-09-18] MEDS ORDERED: PALI234D IM (14:42)
[2019-09-18] MEDS ORDERED: RISP.5 PO (14:44)
== END 2019-09-18 15:45 | disposition home or self-care (01) | DRG 885 ==
LOC: EMS 23:46 → 3EI 09-14 03:30
PROVIDERS: ADMIT Psychiatry & Neurology Child & Adolescent Psychiatry; ATTEND Psychiatry & Neurology Child & Adolescent Psychiatry
DX: F25.0 Schizoaffective disorder, bipolar type (principal); R45.851 Suicidal ideations; Z87.891 Personal history of nicotine dependence; F15.10 Other stimulant abuse, uncomplicated; F10.10 Alcohol abuse, uncomplicated; D72.829 Elevated white blood cell count, unspecified; F41.9 Anxiety disorder, unspecified
CPT/HCPCS: 87081; G0480

== ENCOUNTER 2020-01-04 02:14 | Emergency (ER) | payer MEDICAID, OTHER ==
[~2020-01-04] VITALS: Ht 172.7 cm; Wt 90.0 kg
[~2020-01-04 02:14] MED LIST changes: -DIVA-78 PO; +PALI234D IM; +RISP0.5T20 PO; +VALP250C48 PO
[2020-01-04] MEDS ORDERED: KETOROLAC TROMETHAMINE 60 MG/2 ML VIAL IM ONE (03:00)
[2020-01-04] MEDS ORDERED: METHOCARBAMOL 750 MG TABLET PO ONE (03:00)
[2020-01-04] MEDS ORDERED: ACETAMINOPHEN/CODEINE 300-30 MG TABLET PO ONE (03:00)
[2020-01-04 03:40] VITALS: BP 123/64
== END 2020-01-04 05:18 | disposition home or self-care (01) ==
LOC: EMS 02:14
DX: S39.012A Strain of muscle, fascia and tendon of lower back, initial encounter (principal); F17.210 Nicotine dependence, cigarettes, uncomplicated; F31.9 Bipolar disorder, unspecified; F20.9 Schizophrenia, unspecified; F19.90 Other psychoactive substance use, unspecified, uncomplicated; X58.XXXA Exposure to other specified factors, initial encounter; Y93.89 Activity, other specified; Y92.89 Other specified places as the place of occurrence of the external cause; Y99.8 Other external cause status
CPT/HCPCS: 96372; 99283; 99406; J1885

== ENCOUNTER 2020-02-15 23:50 | Emergency (ER) | payer OTHER ==
[~2020-02-15] VITALS: Ht 177.8 cm; Wt 68.2 kg
[2020-02-16 05:52] VITALS: BP 123/76
== END 2020-02-16 02:25 | disposition left against medical advice (07) ==
LOC: EMS 23:50
DX: R10.9 Unspecified abdominal pain (principal); F31.9 Bipolar disorder, unspecified; F20.9 Schizophrenia, unspecified; F17.210 Nicotine dependence, cigarettes, uncomplicated
CPT/HCPCS: 99283; Z7502

== ENCOUNTER 2021-06-29 13:51 | Inpatient (IN) | payer MEDICAID, OTHER ==
[~2021-06-29] VITALS: Ht 177.8 cm; Wt 72.7 kg
[~2021-06-29 13:51] MED LIST changes: -RISP0.5T20 PO; +RISP0.5T39 PO
[2021-06-29] MEDS ORDERED: LORazepam 2 MG/ML VIAL IM ONE (15:30)
[2021-06-29] MEDS ORDERED: HALOPERIDOL LACTATE 5 MG/ML VIAL IM ONE (15:30)
[2021-06-29] MEDS ORDERED: DiphenhydrAMINE HCL 50 MG/ML VIAL IM ONE (15:30)
[2021-06-29 18:24] LABS: BASOPHILS % (AUTO) 1.3 % (0.0-2.0); EOSINOPHILS % (AUTO) 3.5 % (1.0-6.0); HEMATOCRIT 50.3 % (41-53); HEMOGLOBIN 16.8 g/dL (13.5-17.5); LYMPHOCYTES # (AUTO) 2.6 K/uL (1.0-4.8); LYMPHOCYTES % (AUTO) 39.7 % (22.0-44.0); MEAN CORPUSCULAR HEMOGLOBIN 29.5 pg (26.0-34.0); MEAN CORPUSCULAR HGB CONC 33.5 G/dL (31.0-37.0); MEAN CORPUSCULAR VOLUME 88 fL (80-100); MONOCYTES # (AUTO) 0.5 K/uL (0.1-1.0); MONOCYTES % (AUTO) 8.2 % (2.0-9.0); NEUTROPHILS # (AUTO) 3.1 K/uL (1.8-7.7); NEUTROPHILS % (AUTO) 47.3 % (40.0-70.0); PLATELET COUNT (AUTO) 237 K/uL (150-450); RED BLOOD CELL COUNT(AUTO) 5.71 MIL/uL (4.50-5.90); RED CELL DISTRIBUTION WIDTH 13.6 % (11.5-14.5)
[2021-06-29 18:32] LABS: ANION GAP 9 mmol/L (8-16); CALCIUM, TOTAL 9.3 mg/dL (8.8-10.5); CARBON DIOXIDE 28 mmol/L (22-29); CHLORIDE 104 mmol/L (98-107); CREATININE 1.03 mg/dL (0.60-1.30); GLOMERULAR FILTR. RATE CALC > 60 mL/min (>60); GLUCOSE,RANDOM 93 mg/dL (70-110); POTASSIUM 4.1 mmol/L (3.5-5.1); SODIUM SERUM 141 mmol/L (136-145); UREA NITROGEN, BLOOD 10 mg/dL (7-18)
[2021-06-29 18:39] LABS: ALANINE AMINOTRANSFERASE 19 U/L (12-78); ALBUMIN 4.1 g/dL (3.4-5.0); ALKALINE PHOSPHATASE 51 U/L (46-116); ASPARTATE AMINOTRANSFERASE 18 U/L (15-37); BILIRUBIN,TOTAL 0.7 mg/dL (0.1-1.0); TOTAL PROTEIN, SERUM 7.7 g/dL (6.4-8.2)
[2021-06-29] MEDS ORDERED: ZOLPIDEM TARTRATE 10 MG TABLET PO PRN (19:15)
[2021-06-29] MEDS ORDERED: HALOPERIDOL 5 MG TABLET PO PRN (19:15)
[2021-06-29 21:25] LABS: COVID AG,FIA SOURCE NASAL SWAB
[2021-06-30 08:25] VITALS: BP 122/74
[2021-06-30] MEDS: RisperiDONE 1 MG TABLET PO SCH ×2 (10:07→17:02)
[2021-06-30] MEDS: VALPROIC ACID 250 MG CAPSULE PO SCH ×2 (10:07→17:03)
[2021-06-30] MEDS ORDERED: LOPERAMIDE HCL 2 MG CAPSULE PO PRN (14:30)
[2021-06-30] MEDS ORDERED: ACETAMINOPHEN 325 MG TABLET PO PRN (14:30)
[2021-06-30] MEDS ORDERED: ALBUTEROL SULFATE HFA 90 MCG/PUFF 8 GM INHALER IH PRN (14:30)
[2021-06-30] MEDS ORDERED: MAG HYDROX/AL HYDROX/SIMETH ES 30 ML SUSPENSION UDCUP PO PRN (14:30)
[2021-06-30] MEDS ORDERED: MAGNESIUM HYDROXIDE SUSPENSION 30 ML UDCUP PO PRN (14:30)
[2021-06-30] MEDS ORDERED: DOCUSATE SODIUM 100 MG CAPSULE PO PRN (14:30)
[2021-06-30] MEDS ORDERED: NICOTINE 14 MG/24 HOUR PATCH TD PRN (14:30)
[2021-06-30] MEDS ORDERED: ONDANSETRON HCL 4 MG TABLET PO PRN (14:30)
[2021-06-30] MEDS ORDERED: PETROLATUM,WHITE 28 GM JELLY TP PRN (14:30)
[2021-06-30] MEDS ORDERED: GuaiFENesin/D-METHORPHAN [SUGAR-FREE] 200-20MG/10 ML SYRUP UDCUP PO PRN (14:30)
[2021-06-30] MEDS ORDERED: CloNIDine HCL 0.1 MG TABLET PO PRN (14:30)
[2021-06-30] MEDS ORDERED: IBUPROFEN 400 MG TABLET PO PRN (14:30)
[2021-06-30 16:17] VITALS: BP 122/86
[2021-06-30] MEDS: LORazepam 2 MG TABLET PO PRN (17:03)
[2021-07-01 04:19] VITALS: BP 128/70
[2021-07-01 08:35] VITALS: BP 130/72
[2021-07-01 08:39] LABS: ALANINE AMINOTRANSFERASE 17 U/L (12-78); ALBUMIN 3.6 g/dL (3.4-5.0); ALKALINE PHOSPHATASE 51 U/L (46-116); ANION GAP 6 mmol/L (8-16); ASPARTATE AMINOTRANSFERASE 12 U/L (15-37); BILIRUBIN,TOTAL 0.5 mg/dL (0.1-1.0); CALCIUM, TOTAL 9.2 mg/dL (8.8-10.5); CARBON DIOXIDE 29 mmol/L (22-29); CHLORIDE 104 mmol/L (98-107); CHOL/HDL RATIO 2.6 (4.2-7.3); CHOLESTEROL 114 mg/dL (131-200); GLOMERULAR FILTR. RATE CALC > 60 mL/min (>60); GLUCOSE,RANDOM 87 mg/dL (70-110); HDL CHOLESTEROL 44 mg/dL (40-60); LDL CHOL (CALC.) 58 mg/dL (0-130); POTASSIUM 4.2 mmol/L (3.5-5.1); SODIUM SERUM 139 mmol/L (136-145); TOTAL PROTEIN, SERUM 7.3 g/dL (6.4-8.2); TRIGLYCERIDES 58 mg/dL (15-150); UREA NITROGEN, BLOOD 18 mg/dL (7-18)
[2021-07-01 08:47] LABS: HEMOGLOBIN A1C 5.1 % (3.8-5.6)
[2021-07-01] MEDS: RisperiDONE 1 MG TABLET PO SCH ×2 (09:31→16:19)
[2021-07-01] MEDS: VALPROIC ACID 250 MG CAPSULE PO SCH ×2 (09:31→16:20)
[2021-07-01] MEDS: LORazepam 2 MG TABLET PO PRN (16:20)
[2021-07-01 17:02] VITALS: BP 103/68
[2021-07-02 06:09] VITALS: BP 106/74
[2021-07-02 06:59] LABS: CHOL/HDL RATIO 2.5 (4.2-7.3)
[2021-07-02 08:38] VITALS: BP 96/54
[2021-07-02] MEDS: RisperiDONE 1 MG TABLET PO SCH (08:56)
[2021-07-02] MEDS: LORazepam 2 MG TABLET PO PRN (08:56)
[2021-07-02] MEDS: VALPROIC ACID 250 MG CAPSULE PO SCH (08:56)
[2021-07-02] MEDS ORDERED: VALP250C48 PO (10:53)
[2021-07-02] MEDS ORDERED: RISP1TAB98 PO (10:53)
== END 2021-07-02 12:35 | disposition home or self-care (01) | DRG 750 ==
LOC: EMS 13:57 → B3A 21:53
PROVIDERS: ADMIT Psychiatry & Neurology Child & Adolescent Psychiatry; ATTEND Psychiatry & Neurology Child & Adolescent Psychiatry
DX: F20.0 Paranoid schizophrenia (principal); R45.851 Suicidal ideations; F31.9 Bipolar disorder, unspecified; K59.00 Constipation, unspecified; F17.210 Nicotine dependence, cigarettes, uncomplicated; F41.9 Anxiety disorder, unspecified; F19.10 Other psychoactive substance abuse, uncomplicated; Z20.822 Contact with and (suspected) exposure to COVID-19
CPT/HCPCS: 80053; 80061; 83036; 85025; 99285; G0480; J1200; J1630; J2060

== ENCOUNTER 2022-12-07 03:04 | Emergency (ER) | payer MEDICAID, OTHER ==
[~2022-12-07] VITALS: Ht 170.2 cm; Wt 63.6 kg
[~2022-12-07 03:04] MED LIST changes: -PALI234D IM; -RISP0.5T39 PO; +RISP1TAB98 PO
[2022-12-07 03:06] VITALS: BP 123/78; PULSE 89; RESP 18; TEMP 98.4
[2022-12-07 04:20] LABS: BASOPHILS % (AUTO) 1.3 % (0.0-2.0); EOSINOPHILS % (AUTO) 1.7 % (1.0-6.0); HEMATOCRIT 44.8 % (41-53); LYMPHOCYTES # (AUTO) 2.8 K/uL (1.0-4.8); LYMPHOCYTES % (AUTO) 31.2 % (22.0-44.0); MEAN CORPUSCULAR HEMOGLOBIN 29.3 pg (26.0-34.0); MEAN CORPUSCULAR HGB CONC 33.4 G/dL (31.0-37.0); MEAN CORPUSCULAR VOLUME 88 fL (80-100); MONOCYTES # (AUTO) 0.7 K/uL (0.1-1.0); MONOCYTES % (AUTO) 7.4 % (2.0-9.0); NEUTROPHILS # (AUTO) 5.2 K/uL (1.8-7.7); NEUTROPHILS % (AUTO) 58.4 % (40.0-70.0); PLATELET COUNT (AUTO) 252 K/uL (150-450); RED CELL DISTRIBUTION WIDTH 13.1 % (11.5-14.5)
[2022-12-07] MEDS ORDERED: OLANZapine 5 MG TABLET PO ONE (04:30)
[2022-12-07 04:31] LABS: ANION GAP 10 mmol/L (8-16); CALCIUM, TOTAL 9.2 mg/dL (8.8-10.5); CARBON DIOXIDE 29 mmol/L (22-29); CHLORIDE 100 mmol/L (98-107); CREATININE 1.22 mg/dL (0.60-1.30); GLOMERULAR FILTR. RATE CALC > 60 mL/min (>60); GLUCOSE,RANDOM 110 mg/dL (70-110); POTASSIUM 3.8 mmol/L (3.5-5.1); SODIUM SERUM 139 mmol/L (136-145)
[2022-12-07 04:36] LABS: ALANINE AMINOTRANSFERASE 23 U/L (12-78); ALBUMIN 4.1 g/dL (3.4-5.0); ALKALINE PHOSPHATASE 57 U/L (46-116); ASPARTATE AMINOTRANSFERASE 22 U/L (15-37); BILIRUBIN,TOTAL 0.6 mg/dL (0.1-1.0); TOTAL PROTEIN, SERUM 7.6 g/dL (6.4-8.2)
== END 2022-12-07 04:45 | disposition home or self-care (01) ==
LOC: EMS 03:05
DX: R44.0 Auditory hallucinations (principal); F41.9 Anxiety disorder, unspecified; F31.9 Bipolar disorder, unspecified; F17.210 Nicotine dependence, cigarettes, uncomplicated; F15.90 Other stimulant use, unspecified, uncomplicated
CPT/HCPCS: 99284; 80053; 85025; 36415; G0480; 99283

== ENCOUNTER 2023-04-24 09:20 | Inpatient (IN) | payer MEDICAID ==
[~2023-04-24] VITALS: Ht 177.8 cm; Wt 68.7 kg
[2023-04-24] MEDS ORDERED: ZOLPIDEM TARTRATE 10 MG TABLET PO PRN (11:00)
[2023-04-24 11:11] LABS: GLUCOMETER DEV NAME(LOC) POC.BV; POC SARS-COV2 AG, FIA NEGATIVE (NEGATIVE)
[2023-04-24 11:12] VITALS: BP 117/74; PULSE 75; RESP 18; TEMP 98.3
[2023-04-24] MEDS ORDERED: INFLUENZA VIRUS VACCINE QVS 2023-24 (6MO+)/PF 60 MCG/0.5 ML SYRINGE IM. ONE (13:30)
[2023-04-24] MEDS ORDERED: PNEUMOCOCCAL VACCINE POLYVALENT 0.5 ML SYRINGE [PPSV23] IM. ONE (13:30)
[2023-04-24] MEDS: HALOPERIDOL 5 MG TABLET PO PRN (13:40)
[2023-04-24] MEDS: LORazepam 2 MG TABLET PO PRN (13:40)
[2023-04-24 20:34] VITALS: BP 114/70; PULSE 76; RESP 18; TEMP 97.8
[2023-04-25] MEDS: LORazepam 2 MG TABLET PO PRN (08:16)
[2023-04-25] MEDS: HALOPERIDOL 5 MG TABLET PO PRN (08:16)
[2023-04-25] MEDS: NICOTINE 21 MG/24 HOUR PATCH TD SCH (08:17)
[2023-04-25 08:23] LABS: APPEARANCE,URINE CLEAR (CLEAR); BILIRUBIN,URINE NEGATIVE (NEGATIVE); COLOR,URINE LIGHT YELLOW (YELLOW); GLUCOSE, URINE (UA) NEGATIVE (NEGATIVE); KETONES,URINE TRACE mg/dL (NEGATIVE); LEUKOCYTE ESTERASE ,URINE NEGATIVE (NEGATIVE); NITRATE,URINE NEGATIVE (NEGATIVE); OCCULT BLOOD,URINE NEGATIVE (NEGATIVE); PH,URINE 5.5 (5.0-8.0); PH,URINE DRUG SCREEN 5.5 (5.0-8.0); PROTEIN,URINE NEGATIVE (NEGATIVE); SPECIFIC GRAVITIY, URINE 1.015 (1.003-1.030); UROBILINOGEN,URINE <=1.0 mg/dL (<=1.0)
[2023-04-25 08:29] LABS: ALCOHOL, URINE DRUG SCREEN NEGATIVE (NEGATIVE); AMPHET/METH SCREEN,URINE POSITIVE (NEGATIVE); BARBITURATE SCREEN, URINE NEGATIVE (NEGATIVE); BENZODIAZEPINES SCREEN,URINE NEGATIVE (NEGATIVE); CANNABINOID SCREEN,URINE NEGATIVE (NEGATIVE); COCAINE SCREEN,URINE NEGATIVE (NEGATIVE); METHADONE SCREEN, URINE NEGATIVE (NEGATIVE); OPIATE SCREEN,URINE NEGATIVE (NEGATIVE); PHENCYCLIDINE SCREEN,URINE NEGATIVE (NEGATIVE)
[2023-04-25 08:32] VITALS: BP 100/60; PULSE 69; RESP 17; TEMP 97.6
[2023-04-25 20:37] VITALS: BP 111/62; PULSE 75; RESP 18; TEMP 97.9
[2023-04-25] MEDS ORDERED: OMEPRAZOLE 20 MG CAPSULE PO PRN (23:00)
[2023-04-25] MEDS ORDERED: ONDANSETRON HCL 4 MG TABLET PO PRN (23:00)
[2023-04-25] MEDS ORDERED: PETROLATUM,WHITE 28 GM JELLY TP PRN (23:00)
[2023-04-25] MEDS ORDERED: BACITRACIN 28 GM OINTMENT TP PRN (23:00)
[2023-04-25] MEDS ORDERED: LOPERAMIDE HCL 2 MG CAPSULE PO PRN (23:00)
[2023-04-25] MEDS ORDERED: MAGNESIUM HYDROXIDE SUSPENSION 30 ML UDCUP PO PRN (23:00)
[2023-04-25] MEDS ORDERED: CloNIDine HCL 0.1 MG TABLET PO PRN (23:00)
[2023-04-25] MEDS ORDERED: BENZOCAINE/MENTHOL LOZENGE PO PRN (23:00)
[2023-04-25] MEDS ORDERED: ALBUTEROL SULFATE HFA 90 MCG/PUFF 8 GM INHALER IH PRN (23:00)
[2023-04-25] MEDS ORDERED: DOCUSATE SODIUM 100 MG CAPSULE PO PRN (23:00)
[2023-04-25] MEDS ORDERED: ACETAMINOPHEN 325 MG TABLET PO PRN (23:00)
[2023-04-25] MEDS ORDERED: MAG HYDROX/ALUMINUM HYD/SIMETH ES 30 ML SUSPENSION UDCUP PO PRN (23:00)
[2023-04-25] MEDS ORDERED: IBUPROFEN 600 MG TABLET PO PRN (23:00)
[2023-04-26 07:53] LABS: BASOPHILS % (AUTO) 0.7 % (0.0-2.0); EOSINOPHILS % (AUTO) 4.5 % (1.0-6.0); HEMATOCRIT 42.3 % (41-53); HEMOGLOBIN 14.6 g/dL (13.5-17.5); LYMPHOCYTES % (AUTO) 37.2 % (22.0-44.0); MEAN CORPUSCULAR HEMOGLOBIN 30.4 pg (26.0-34.0); MEAN CORPUSCULAR HGB CONC 34.6 G/dL (31.0-37.0); MEAN CORPUSCULAR VOLUME 88 fL (80-100); MONOCYTES # (AUTO) 0.4 K/uL (0.1-1.0); MONOCYTES % (AUTO) 7.9 % (2.0-9.0); NEUTROPHILS # (AUTO) 2.6 K/uL (1.8-7.7); NEUTROPHILS % (AUTO) 49.7 % (40.0-70.0); PLATELET COUNT (AUTO) 295 K/uL (150-450); RED BLOOD CELL COUNT(AUTO) 4.82 MIL/uL (4.50-5.90); RED CELL DISTRIBUTION WIDTH 12.7 % (11.5-14.5); WHITE BLOOD COUNT (AUTO) 5.3 K/uL (4.5-11.0)
[2023-04-26] MEDS: RisperiDONE 1 MG TABLET PO SCH ×2 (08:09→17:00)
[2023-04-26] MEDS: NICOTINE 21 MG/24 HOUR PATCH TD SCH (08:09)
[2023-04-26 08:15] LABS: ALCOHOL, BLOOD (SERUM) < 3 mg/dL (0-10)
[2023-04-26 08:16] LABS: ALANINE AMINOTRANSFERASE 26 U/L (12-78); ALBUMIN 3.3 g/dL (3.4-5.0); ALKALINE PHOSPHATASE 51 U/L (46-116); ANION GAP 2 mmol/L (8-16); ASPARTATE AMINOTRANSFERASE 16 U/L (15-37); BILIRUBIN,TOTAL 0.4 mg/dL (0.1-1.0); CALCIUM, TOTAL 8.8 mg/dL (8.8-10.5); CARBON DIOXIDE 32 mmol/L (22-29); CHLORIDE 106 mmol/L (98-107); CHOL/HDL RATIO 2.1 (4.2-7.3); CHOLESTEROL 100 mg/dL (131-200); CREATININE 1.06 mg/dL (0.60-1.30); FREE T4 (FREE THYROXINE) 0.89 ng/dL (0.76-1.46); GLOMERULAR FILTR. RATE CALC > 60 mL/min (>60); GLUCOSE,RANDOM 98 mg/dL (70-110); HDL CHOLESTEROL 47 mg/dL (40-60); LDL CHOL (CALC.) 49 mg/dL (0-130); POTASSIUM 4.2 mmol/L (3.5-5.1); SODIUM SERUM 140 mmol/L (136-145); THYROID STIMULATING HORMONE 0.85 uIU/mL (0.36-3.74); TOTAL PROTEIN, SERUM 6.7 g/dL (6.4-8.2); TRIGLYCERIDES 21 mg/dL (15-150); UREA NITROGEN, BLOOD 14 mg/dL (7-18)
[2023-04-26 08:27] VITALS: BP 107/59; PULSE 65; RESP 17; TEMP 97.3; O2SAT 99
[2023-04-26] MEDS: VALPROIC ACID 250 MG CAPSULE PO SCH ×2 (08:34→17:00)
[2023-04-26 12:33] VITALS: BP 107/59; PULSE 65; RESP 17; TEMP 97.3; O2SAT 99
[2023-04-26] MEDS: LORazepam 2 MG TABLET PO PRN (17:00)
[2023-04-26 20:15] VITALS: BP 108/62; PULSE 73; RESP 19; TEMP 97.5; O2SAT 100
[2023-04-27 08:36] VITALS: BP 100/62; PULSE 70; RESP 18; TEMP 98; O2SAT 99
[2023-04-27] MEDS: RisperiDONE 1 MG TABLET PO SCH ×2 (08:48→17:25)
[2023-04-27] MEDS: VALPROIC ACID 250 MG CAPSULE PO SCH ×2 (08:48→17:25)
[2023-04-27] MEDS: NICOTINE 21 MG/24 HOUR PATCH TD SCH (08:53)
[2023-04-27] MEDS ORDERED: PALIPERIDONE PALMITATE 234 MG/1.5 ML SYRINGE IM SCH (09:00)
[2023-04-27] MEDS: LORazepam 2 MG TABLET PO PRN (17:25)
[2023-04-27 20:48] VITALS: BP 105/51; PULSE 76; RESP 18; TEMP 97.3; O2SAT 98
[2023-04-28] MEDS: NICOTINE 21 MG/24 HOUR PATCH TD SCH (08:00)
[2023-04-28] MEDS: RisperiDONE 1 MG TABLET PO SCH (08:00)
[2023-04-28] MEDS: VALPROIC ACID 250 MG CAPSULE PO SCH (08:00)
[2023-04-28 08:18] VITALS: BP 106/66; PULSE 67; RESP 17; TEMP 97.7; O2SAT 97
== END 2023-04-28 15:12 | disposition home or self-care (01) | DRG 750 ==
LOC: B3A 12:26
PROVIDERS: ADMIT Psychiatry & Neurology Psychiatry; ATTEND Psychiatry & Neurology Psychiatry
DX: F25.9 Schizoaffective disorder, unspecified (principal); F10.90 Alcohol use, unspecified, uncomplicated; F15.10 Other stimulant abuse, uncomplicated; Z72.0 Tobacco use; Z59.00 Homelessness unspecified; Z20.822 Contact with and (suspected) exposure to COVID-19
CPT/HCPCS: 80053; 80061; 80307; 81003; 84439; 84443; 85025; 86592; G0480

== ENCOUNTER 2023-05-06 01:45 | Emergency (ER) | payer MEDICAID, OTHER | END 2023-05-06 02:33 | disposition left against medical advice (07) | LOC: EMS 01:46 | DX: Z53.21 Procedure and treatment not carried out due to patient leaving prior to being seen by health care provider (principal) ==

== ENCOUNTER 2023-05-06 03:09 | Emergency (ER) | payer OTHER ==
[~2023-05-06] VITALS: Ht 177.8 cm; Wt 72.7 kg
[2023-05-06 03:22] VITALS: BP 119/74; PULSE 73; RESP 16; TEMP 98.1
== END 2023-05-06 04:55 | disposition left against medical advice (07) ==
LOC: EMS 03:10
DX: M54.9 Dorsalgia, unspecified (principal); F41.9 Anxiety disorder, unspecified; F31.9 Bipolar disorder, unspecified; F20.9 Schizophrenia, unspecified; F17.210 Nicotine dependence, cigarettes, uncomplicated; F15.90 Other stimulant use, unspecified, uncomplicated
CPT/HCPCS: 99281; Z7502

== ENCOUNTER 2023-05-06 05:01 | Inpatient (IN) | payer MEDICAID, OTHER ==
[~2023-05-06] VITALS: Ht 177.8 cm; Wt 72.6 kg
[2023-05-06] MEDS ORDERED: HALOPERIDOL 5 MG TABLET PO PRN (06:15)
[2023-05-06] MEDS ORDERED: LORazepam 2 MG TABLET PO PRN (06:15)
[2023-05-06] MEDS ORDERED: ZOLPIDEM TARTRATE 10 MG TABLET PO PRN (06:15)
[2023-05-06 06:16] LABS: COVID AG,FIA SOURCE NASAL SWAB
[2023-05-06 06:18] LABS: BASOPHILS % (AUTO) 0.7 % (0.0-2.0); EOSINOPHILS % (AUTO) 4.1 % (1.0-6.0); HEMATOCRIT 42.2 % (41-53); HEMOGLOBIN 14.1 g/dL (13.5-17.5); LYMPHOCYTES % (AUTO) 35.3 % (22.0-44.0); MEAN CORPUSCULAR HEMOGLOBIN 29.6 pg (26.0-34.0); MEAN CORPUSCULAR HGB CONC 33.3 G/dL (31.0-37.0); MEAN CORPUSCULAR VOLUME 89 fL (80-100); MONOCYTES # (AUTO) 0.6 K/uL (0.1-1.0); MONOCYTES % (AUTO) 9.6 % (2.0-9.0); NEUTROPHILS # (AUTO) 2.9 K/uL (1.8-7.7); NEUTROPHILS % (AUTO) 50.3 % (40.0-70.0); PLATELET COUNT (AUTO) 228 K/uL (150-450); RED BLOOD CELL COUNT(AUTO) 4.76 MIL/uL (4.50-5.90); WHITE BLOOD COUNT (AUTO) 5.8 K/uL (4.5-11.0)
[2023-05-06 06:27] LABS: ANION GAP 2 mmol/L (8-16); CALCIUM, TOTAL 9.4 mg/dL (8.8-10.5); CARBON DIOXIDE 34 mmol/L (22-29); CHLORIDE 103 mmol/L (98-107); CREATININE 1.09 mg/dL (0.60-1.30); GLOMERULAR FILTR. RATE CALC > 60 mL/min (>60); GLUCOSE,RANDOM 108 mg/dL (70-110); POTASSIUM 4.4 mmol/L (3.5-5.1); SODIUM SERUM 139 mmol/L (136-145); UREA NITROGEN, BLOOD 10 mg/dL (7-18)
[2023-05-06 06:33] LABS: ALANINE AMINOTRANSFERASE 28 U/L (12-78); ALKALINE PHOSPHATASE 54 U/L (46-116); ASPARTATE AMINOTRANSFERASE 26 U/L (15-37); BILIRUBIN,TOTAL 0.5 mg/dL (0.1-1.0); TOTAL PROTEIN, SERUM 7.8 g/dL (6.4-8.2)
[2023-05-06 06:35] LABS: SARS-COV2 (COVID) ANTIGEN,FIA Negative (Negative)
[2023-05-06 07:01] LABS: ALCOHOL, BLOOD (SERUM) < 3 mg/dL (0-10)
[2023-05-06 11:10] VITALS: BP 102/92; PULSE 76; RESP 18; TEMP 97.5; O2SAT 98
[2023-05-06] MEDS ORDERED: PNEUMOCOCCAL VACCINE POLYVALENT 0.5 ML SYRINGE [PPSV23] IM. ONE (12:45)
[2023-05-06] MEDS ORDERED: INFLUENZA VIRUS VACCINE QVS 2023-24 (6MO+)/PF 60 MCG/0.5 ML SYRINGE IM. ONE (12:45)
[2023-05-06] MEDS ORDERED: IBUPROFEN 600 MG TABLET PO PRN (19:30)
[2023-05-06] MEDS ORDERED: ONDANSETRON HCL 4 MG TABLET PO PRN (19:30)
[2023-05-06] MEDS ORDERED: BACITRACIN 28 GM OINTMENT TP PRN (19:30)
[2023-05-06] MEDS ORDERED: ALBUTEROL SULFATE HFA 90 MCG/PUFF 8 GM INHALER IH PRN (19:30)
[2023-05-06] MEDS ORDERED: MAG HYDROX/ALUMINUM HYD/SIMETH ES 30 ML SUSPENSION UDCUP PO PRN (19:30)
[2023-05-06] MEDS ORDERED: PETROLATUM,WHITE 28 GM JELLY TP PRN (19:30)
[2023-05-06] MEDS ORDERED: MAGNESIUM HYDROXIDE SUSPENSION 30 ML UDCUP PO PRN (19:30)
[2023-05-06] MEDS ORDERED: CloNIDine HCL 0.1 MG TABLET PO PRN (19:30)
[2023-05-06] MEDS ORDERED: LOPERAMIDE HCL 2 MG CAPSULE PO PRN (19:30)
[2023-05-06] MEDS ORDERED: BENZOCAINE/MENTHOL LOZENGE PO PRN (19:30)
[2023-05-06] MEDS ORDERED: ACETAMINOPHEN 325 MG TABLET PO PRN (19:30)
[2023-05-06] MEDS ORDERED: DOCUSATE SODIUM 100 MG CAPSULE PO PRN (19:30)
[2023-05-06] MEDS ORDERED: OMEPRAZOLE 20 MG CAPSULE PO PRN (19:30)
[2023-05-06 20:45] VITALS: BP 101/61; PULSE 67; RESP 17; TEMP 98.7; O2SAT 98
[2023-05-07 09:18] VITALS: BP 108/66; PULSE 60; RESP 16; TEMP 98.6; O2SAT 96
[2023-05-07 22:57] VITALS: BP 125/79; PULSE 79; RESP 17; TEMP 97.6
[2023-05-08 08:38] VITALS: BP 100/67; PULSE 90; RESP 18; TEMP 98.7; O2SAT 97
[2023-05-08] MEDS: RisperiDONE 1 MG TABLET PO SCH ×2 (08:39→16:29)
[2023-05-08] MEDS: DIVALPROEX SODIUM 500 MG DR TABLET PO SCH ×2 (08:39→16:29)
[2023-05-08] MEDS: NICOTINE 21 MG/24 HOUR PATCH TD SCH (14:54)
[2023-05-08 20:35] VITALS: BP 98/61; PULSE 82; RESP 17; TEMP 98.5; O2SAT 99
[2023-05-09] MEDS: DIVALPROEX SODIUM 500 MG DR TABLET PO SCH (08:34)
[2023-05-09] MEDS: RisperiDONE 1 MG TABLET PO SCH (08:34)
[2023-05-09] MEDS: NICOTINE 21 MG/24 HOUR PATCH TD SCH (08:35)
[2023-05-09 09:15] VITALS: BP 97/65; PULSE 83; RESP 16; TEMP 97.6; O2SAT 100
== END 2023-05-09 12:45 | disposition home or self-care (01) | DRG 750 ==
LOC: EMS 05:03 → B2S 08:50
PROVIDERS: ADMIT Psychiatry & Neurology Psychiatry; ATTEND Psychiatry & Neurology Psychiatry
DX: F20.0 Paranoid schizophrenia (principal); R45.851 Suicidal ideations; E55.9 Vitamin D deficiency, unspecified; F15.10 Other stimulant abuse, uncomplicated; F10.90 Alcohol use, unspecified, uncomplicated; F41.9 Anxiety disorder, unspecified; F17.210 Nicotine dependence, cigarettes, uncomplicated; Z20.822 Contact with and (suspected) exposure to COVID-19
CPT/HCPCS: 80053; 85025; 87081; G0480

== ENCOUNTER 2023-05-10 22:56 | Emergency (ER) | payer MEDICAID, OTHER ==
[2023-05-11] MEDS: OLANZapine 5 MG TABLET PO ONE ×2 (00:26→05:00)
[2023-05-11 05:55] LABS: BASOPHILS % (AUTO) 0.6 % (0.0-2.0); EOSINOPHILS % (AUTO) 2.5 % (1.0-6.0); HEMATOCRIT 38.9 % (41-53); HEMOGLOBIN 13.4 g/dL (13.5-17.5); LYMPHOCYTES % (AUTO) 31.6 % (22.0-44.0); MEAN CORPUSCULAR HEMOGLOBIN 30.1 pg (26.0-34.0); MEAN CORPUSCULAR HGB CONC 34.4 G/dL (31.0-37.0); MEAN CORPUSCULAR VOLUME 88 fL (80-100); MONOCYTES # (AUTO) 0.6 K/uL (0.1-1.0); MONOCYTES % (AUTO) 10.2 % (2.0-9.0); NEUTROPHILS # (AUTO) 3.5 K/uL (1.8-7.7); NEUTROPHILS % (AUTO) 55.1 % (40.0-70.0); PLATELET COUNT (AUTO) 203 K/uL (150-450); RED BLOOD CELL COUNT(AUTO) 4.44 MIL/uL (4.50-5.90); RED CELL DISTRIBUTION WIDTH 12.8 % (11.5-14.5); WHITE BLOOD COUNT (AUTO) 6.3 K/uL (4.5-11.0)
[2023-05-11 06:09] LABS: ANION GAP 8 mmol/L (8-16); CALCIUM, TOTAL 9.1 mg/dL (8.8-10.5); CARBON DIOXIDE 30 mmol/L (22-29); CHLORIDE 101 mmol/L (98-107); GLOMERULAR FILTR. RATE CALC > 60 mL/min (>60); GLUCOSE,RANDOM 100 mg/dL (70-110); POTASSIUM 3.6 mmol/L (3.5-5.1); SODIUM SERUM 139 mmol/L (136-145); UREA NITROGEN, BLOOD 9 mg/dL (7-18)
[2023-05-11 06:14] LABS: ALCOHOL, BLOOD (SERUM) < 3 mg/dL (0-10)
[2023-05-11 06:15] LABS: ALANINE AMINOTRANSFERASE 22 U/L (12-78); ALBUMIN 3.8 g/dL (3.4-5.0); ALKALINE PHOSPHATASE 48 U/L (46-116); ASPARTATE AMINOTRANSFERASE 22 U/L (15-37); BILIRUBIN,TOTAL 0.8 mg/dL (0.1-1.0); TOTAL PROTEIN, SERUM 7.4 g/dL (6.4-8.2)
== END 2023-05-11 06:58 | disposition left against medical advice (07) ==
LOC: EMS 22:57
DX: F20.9 Schizophrenia, unspecified (principal); F41.9 Anxiety disorder, unspecified; F31.9 Bipolar disorder, unspecified; F17.210 Nicotine dependence, cigarettes, uncomplicated; F15.90 Other stimulant use, unspecified, uncomplicated
CPT/HCPCS: 99283; 80053; 85025; 36415; G0480

== ENCOUNTER 2023-05-11 12:04 | Emergency (ER) | payer OTHER | END 2023-05-11 12:49 | disposition left against medical advice (07) | LOC: EMS 12:11 | DX: Z53.21 Procedure and treatment not carried out due to patient leaving prior to being seen by health care provider (principal) ==

== ENCOUNTER 2023-05-11 17:36 | Inpatient (IN) | payer MEDICAID, OTHER ==
[~2023-05-11] VITALS: Ht 177.8 cm; Wt 66.2 kg
[2023-05-11 18:05] LABS: BASOPHILS % (AUTO) 0.8 % (0.0-2.0); EOSINOPHILS % (AUTO) 2.6 % (1.0-6.0); HEMATOCRIT 41.1 % (41-53); HEMOGLOBIN 13.9 g/dL (13.5-17.5); LYMPHOCYTES # (AUTO) 1.9 K/uL (1.0-4.8); LYMPHOCYTES % (AUTO) 29.3 % (22.0-44.0); MEAN CORPUSCULAR HEMOGLOBIN 29.9 pg (26.0-34.0); MEAN CORPUSCULAR HGB CONC 33.7 G/dL (31.0-37.0); MEAN CORPUSCULAR VOLUME 89 fL (80-100); MONOCYTES # (AUTO) 0.7 K/uL (0.1-1.0); MONOCYTES % (AUTO) 10.1 % (2.0-9.0); NEUTROPHILS # (AUTO) 3.7 K/uL (1.8-7.7); NEUTROPHILS % (AUTO) 57.2 % (40.0-70.0); PLATELET COUNT (AUTO) 216 K/uL (150-450); RED BLOOD CELL COUNT(AUTO) 4.63 MIL/uL (4.50-5.90); RED CELL DISTRIBUTION WIDTH 13.1 % (11.5-14.5); WHITE BLOOD COUNT (AUTO) 6.5 K/uL (4.5-11.0)
[2023-05-11 18:15] LABS: ANION GAP 5 mmol/L (8-16); CALCIUM, TOTAL 9.5 mg/dL (8.8-10.5); CARBON DIOXIDE 32 mmol/L (22-29); CHLORIDE 101 mmol/L (98-107); CREATININE 1.12 mg/dL (0.60-1.30); GLOMERULAR FILTR. RATE CALC > 60 mL/min (>60); GLUCOSE,RANDOM 106 mg/dL (70-110); POTASSIUM 3.7 mmol/L (3.5-5.1); SODIUM SERUM 138 mmol/L (136-145); UREA NITROGEN, BLOOD 10 mg/dL (7-18)
[2023-05-11 18:21] LABS: ALANINE AMINOTRANSFERASE 23 U/L (12-78); ALBUMIN 4.1 g/dL (3.4-5.0); ALKALINE PHOSPHATASE 48 U/L (46-116); ASPARTATE AMINOTRANSFERASE 22 U/L (15-37); BILIRUBIN,TOTAL 0.9 mg/dL (0.1-1.0); TOTAL PROTEIN, SERUM 7.7 g/dL (6.4-8.2); VALPROIC ACID 13 mcg/mL (50-100)
[2023-05-11 18:24] LABS: ALCOHOL, BLOOD (SERUM) < 3 mg/dL (0-10)
[2023-05-11 19:19] LABS: COVID AG,FIA SOURCE NASOPHARYNGEAL
[2023-05-11 19:42] LABS: SARS-COV2 (COVID) ANTIGEN,FIA Negative (Negative)
[2023-05-11] MEDS ORDERED: HALOPERIDOL 5 MG TABLET PO PRN (21:00)
[2023-05-11] MEDS ORDERED: ZOLPIDEM TARTRATE 10 MG TABLET PO PRN (21:00)
[2023-05-12] MEDS: LORazepam 2 MG TABLET PO PRN (00:58)
[2023-05-12 01:17] LABS: APPEARANCE,URINE CLEAR (CLEAR); BILIRUBIN,URINE NEGATIVE (NEGATIVE); COLOR,URINE YELLOW (YELLOW); GLUCOSE, URINE (UA) NEGATIVE (NEGATIVE); LEUKOCYTE ESTERASE ,URINE NEGATIVE (NEGATIVE); NITRATE,URINE NEGATIVE (NEGATIVE); OCCULT BLOOD,URINE NEGATIVE (NEGATIVE); PH,URINE 6.5 (5.0-8.0); PROTEIN,URINE TRACE mg/dL (NEGATIVE); SPECIFIC GRAVITIY, URINE 1.023 (1.003-1.030)
[2023-05-12 01:25] LABS: ALCOHOL, URINE DRUG SCREEN NEGATIVE (NEGATIVE); AMPHET/METH SCREEN,URINE POSITIVE (NEGATIVE); BARBITURATE SCREEN, URINE NEGATIVE (NEGATIVE); BENZODIAZEPINES SCREEN,URINE NEGATIVE (NEGATIVE); CANNABINOID SCREEN,URINE NEGATIVE (NEGATIVE); COCAINE SCREEN,URINE NEGATIVE (NEGATIVE); METHADONE SCREEN, URINE NEGATIVE (NEGATIVE); OPIATE SCREEN,URINE NEGATIVE (NEGATIVE); PHENCYCLIDINE SCREEN,URINE NEGATIVE (NEGATIVE)
[2023-05-12 01:29] LABS: PH,URINE DRUG SCREEN 6.5 (5.0-8.0)
[2023-05-12] MEDS ORDERED: NICOTINE 7 MG/24 HOUR PATCH TD ONE (02:00)
[2023-05-12 03:29] VITALS: BP 109/56; PULSE 68; RESP 16; TEMP 98.2; O2SAT 98
[2023-05-12] MEDS ORDERED: IBUPROFEN 600 MG TABLET PO PRN (05:45)
[2023-05-12] MEDS ORDERED: DOCUSATE SODIUM 100 MG CAPSULE PO PRN (05:45)
[2023-05-12] MEDS ORDERED: BACITRACIN 28 GM OINTMENT TP PRN (05:45)
[2023-05-12] MEDS ORDERED: ALBUTEROL SULFATE HFA 90 MCG/PUFF 8 GM INHALER IH PRN (05:45)
[2023-05-12] MEDS ORDERED: CloNIDine HCL 0.1 MG TABLET PO PRN (05:45)
[2023-05-12] MEDS ORDERED: MAGNESIUM HYDROXIDE SUSPENSION 30 ML UDCUP PO PRN (05:45)
[2023-05-12] MEDS ORDERED: ONDANSETRON HCL 4 MG TABLET PO PRN (05:45)
[2023-05-12] MEDS ORDERED: BENZOCAINE/MENTHOL LOZENGE PO PRN (05:45)
[2023-05-12] MEDS ORDERED: MAG HYDROX/ALUMINUM HYD/SIMETH ES 30 ML SUSPENSION UDCUP PO PRN (05:45)
[2023-05-12] MEDS ORDERED: OMEPRAZOLE 20 MG CAPSULE PO PRN (05:45)
[2023-05-12] MEDS ORDERED: PETROLATUM,WHITE 28 GM JELLY TP PRN (05:45)
[2023-05-12] MEDS ORDERED: LOPERAMIDE HCL 2 MG CAPSULE PO PRN (05:45)
[2023-05-12] MEDS ORDERED: ACETAMINOPHEN 325 MG TABLET PO PRN (05:45)
[2023-05-12] MEDS ORDERED: PNEUMOCOCCAL VACCINE POLYVALENT 0.5 ML SYRINGE [PPSV23] IM. ONE (06:00)
[2023-05-12] MEDS ORDERED: INFLUENZA VIRUS VACCINE QVS 2023-24 (6MO+)/PF 60 MCG/0.5 ML SYRINGE IM. ONE (06:00)
[2023-05-12 08:48] VITALS: RESP 16
[2023-05-12 23:00] VITALS: RESP 18
[2023-05-13 08:31] VITALS: BP 106/79; PULSE 86; RESP 18; TEMP 97.9; O2SAT 99
[2023-05-13] MEDS: DIVALPROEX SODIUM 500 MG DR TABLET PO SCH (17:30)
[2023-05-13] MEDS: RisperiDONE 1 MG TABLET PO SCH (17:31)
[2023-05-13] MEDS: LORazepam 2 MG TABLET PO PRN (17:31)
[2023-05-13 20:32] VITALS: BP 104/61; PULSE 78; RESP 18; TEMP 97.7
[2023-05-14] MEDS: RisperiDONE 1 MG TABLET PO SCH ×2 (08:33→16:40)
[2023-05-14] MEDS: DIVALPROEX SODIUM 500 MG DR TABLET PO SCH ×2 (08:33→16:40)
[2023-05-14 09:00] VITALS: BP 108/63; PULSE 76; RESP 18; TEMP 98.1; O2SAT 98
[2023-05-15 05:47] VITALS: BP 105/70; PULSE 74; RESP 18; TEMP 97.6; O2SAT 97
[2023-05-15 08:42] VITALS: BP 109/67; PULSE 71; RESP 17; TEMP 98.6; O2SAT 98
[2023-05-15] MEDS: DIVALPROEX SODIUM 500 MG DR TABLET PO SCH ×2 (09:09→16:08)
[2023-05-15] MEDS: RisperiDONE 1 MG TABLET PO SCH ×2 (09:09→16:08)
[2023-05-15 20:41] VITALS: BP 110/72; PULSE 72; RESP 18; TEMP 98.2; O2SAT 97
[2023-05-16] MEDS: DIVALPROEX SODIUM 500 MG DR TABLET PO SCH ×2 (08:50→16:20)
[2023-05-16] MEDS: RisperiDONE 1 MG TABLET PO SCH ×2 (08:50→16:20)
[2023-05-16 08:58] VITALS: BP 109/72; PULSE 82; RESP 18; TEMP 98.4; O2SAT 97
[2023-05-16] MEDS: LORazepam 2 MG TABLET PO PRN (15:26)
[2023-05-16 20:20] VITALS: BP 98/63; PULSE 96; RESP 18; TEMP 98.8; O2SAT 97
[2023-05-17] MEDS: RisperiDONE 1 MG TABLET PO SCH ×2 (09:02→16:52)
[2023-05-17] MEDS: DIVALPROEX SODIUM 500 MG DR TABLET PO SCH ×2 (09:02→16:52)
[2023-05-17] MEDS: LORazepam 2 MG TABLET PO PRN ×2 (09:03→16:52)
[2023-05-17 15:20] VITALS: BP 110/78; PULSE 86; RESP 18; TEMP 98; O2SAT 97
[2023-05-17 20:24] VITALS: BP 105/82; PULSE 80; RESP 18; TEMP 97.9; O2SAT 98
[2023-05-18 08:37] VITALS: BP 106/58; PULSE 60; RESP 18; TEMP 97.8; O2SAT 97
[2023-05-18] MEDS: RisperiDONE 1 MG TABLET PO SCH ×2 (10:44→16:25)
[2023-05-18] MEDS: DIVALPROEX SODIUM 500 MG DR TABLET PO SCH ×2 (10:44→16:25)
== END 2023-05-18 18:34 | disposition home or self-care (01) | DRG 750 ==
LOC: EMS 18:07 → B3A 23:35 → B2S 05-13 20:17
PROVIDERS: ADMIT Psychiatry & Neurology Psychiatry; ATTEND Psychiatry & Neurology Psychiatry
DX: F25.0 Schizoaffective disorder, bipolar type (principal); E55.9 Vitamin D deficiency, unspecified; F15.10 Other stimulant abuse, uncomplicated; F17.200 Nicotine dependence, unspecified, uncomplicated; Z20.822 Contact with and (suspected) exposure to COVID-19; F25.1 Schizoaffective disorder, depressive type; F41.9 Anxiety disorder, unspecified; Z79.899 Other long term (current) drug therapy
CPT/HCPCS: 80053; 80164; 80307; 81003; 85025; 87081; 99285; G0480